=== PATIENT | female | born 1965 | race Caucasian/White ===

== ENCOUNTER 2021-12-21 13:29 | Inpatient (IN) | payer BC, OTHER ==
[2021-12-21] MEDS ORDERED: NA CHLORIDE 0.9% 1,000 ML ONE ×4 (14:43→17:54)
[2021-12-21 15:02] LABS: Absolute Lymphocytes (CBC) 0.9 K/uL (0.7-4.9); Hematocrit 39.4 % (36.0-45.0); Lymphocytes % 15.3 % (15.3-44.8); MPV 10.2 fL (7.6-11.3); Protime INR 1.19; RBC Red Blood Cell Count 4.51 M/uL (3.86-4.86)
[2021-12-21] MEDS ORDERED: ACETAMINOPHEN 325 MG TABLET ONE (15:05)
--- NOTE | 2021-12-21 15:49 | RAD REPORT ---
EXAM DESCRIPTION: RAD - Chest Single View - 12/21/2021 3:19 pm CLINICAL HISTORY: DYSPNEA Chest pain. COMPARISON: CHEST SINGLE VIEW dated 11/17/2013; CHEST PA AND LAT 2 VIEW dated 10/07/2009 FINDINGS: Portable technique limits examination quality. The lungs are grossly clear. The heart is normal in size. No displaced fractures.Cervical hardware pl ate is in place. IMPRESSION: No acute intrathoracic process suspected.
[2021-12-21 15:58] LABS: SARS-COV-2 RT PCR NEGATIVE (NEGATIVE)
[2021-12-21 17:37] LABS: ALT/SGPT 39 U/L (12-78); AST/SGOT 126 U/L (15-37); Albumin 2.6 g/dL (3.4-5.0); Alkaline Phosphatase 79 U/L (45-117); BUN Blood Urea Nitrogen 37 mg/dL (7-18); Bicarbonate 17 mmol/L (21-32); Bilirubin Total 0.3 mg/dL (0.2-1.0); Glucose Level 106 mg/dL (74-106); Lipase 30 U/L (73-393); Magnesium 1.9 mg/dL (1.8-2.4); NT PRO-BNP 1030 pg/mL (<125); Potassium 3.5 mmol/L (3.5-5.1); Protein, Total 6.9 g/dL (6.4-8.2); Sodium Level 134 mmol/L (136-145)
[2021-12-21 17:38] LABS: Bilirubin Direct < 0.1 mg/dL (0-0.2)
--- NOTE | 2021-12-21 17:50 | EDPHYS ---
Physician Documentation [facility] Name: Saranya Ceja Age: 56 yrs Sex: Female : 1965 Arrival Date: 12/21/2021 Time: 13:38 Bed 14 Private MD: ED Physician Radhika Campbell HPI: 12/21 17:31 This 56 yrs old Female presents to ER via EMS with complaints of Diarrhea, General kb Weakness. 17:31 The patient presents to the emergency department with nausea, diarrhea. Onset: The kb symptoms/episode began/occurred 3 week(s) ago. Possible causes: unknown. The symptoms are aggravated by nothing. The symptoms are alleviated by nothing. Associated signs and symptoms: Pertinent positives: diarrhea, fever, nausea. Severity of symptoms: At their worst the symptoms were moderate in the emergency department the symptoms are unchanged. The patient has not experienced similar symptoms in the past. The patient has not recently seen a physician. Pt reports headache, diarrhea, malaise, fever, chills for 3 weeks. . - Immunization history:: Adult Immunizations up to date, Client reports receiving the 2nd dose of the Covid vaccine. - Social history:: Smoking status: unknown. ROS: 15:35 Cardiovascular: Negative for chest pain, palpitations, and edema. kb 15:35 Constitutional: Positive for fever. 15:35 Abdomen/GI: Positive for diarrhea. 15:35 Neuro: Positive for weakness. 15:35 All other systems are negative. Exam: 15:35 ENT: Moist Mucous membranes Cardiovascular: Regular rate and rhythm with a normal S1 kb and S2. No gallops, murmurs, or rubs. No pulse deficits. Respiratory: Respirations even and unlabored. No increased work of breathing. Talking in full sentences Abdomen/GI: Soft, non-tender. No distention Skin: Warm, dry with normal turgor. Normal color. MS/ Extremity: Pulses equal, no cyanosis. Neurovascular intact. Full, normal range of motion. 15:35 Constitutional: The patient appears alert, awake, drowsy 15:35 Neuro: Orientation: is normal, Mentation: is normal. Vital Signs: 13:39 BP 138 / 88; Pulse 110; Pulse Ox 98% ; Weight 74.84 kg; Height 5 ft. 6 in. (167.64 cm); cb5 Pain 0/10; 14:00 BP 87 / 63; Pulse 123; Resp 20; Pulse Ox 98% ; Pain 0/10; cb5 14:15 BP 90 / 59; Pulse 119; Resp 22; Pulse Ox 98% ; Pain 0/10; cb5 14:35 BP 71 / 52; Pulse 121; Resp 22; Temp 99; Pain 0/10; cb5 14:40 BP 78 / 60; Pulse 121; Resp 20; Pulse Ox 98% ; Pain 0/10; cb5 15:00 BP 96 / 82; Pulse 117; Resp 22; Pulse Ox 98% ; Pain 0/10; cb5 15:01 BP 80 / 60; Pulse 117; Resp 21; Pulse Ox 99% ; iw 15:15 BP 88 / 45; Pulse 118; Resp 20; Pulse Ox 100% ; Pain 0/10; cb5 15:35 BP 100 / 52; Pulse 116; Resp 18; Pulse Ox 99% ; cb5 15:36 Weight 88.45 kg; kb 16:05 BP 116 / 70; Pulse 106; Resp 20; Temp 98.6; Pulse Ox 99% ; Pain 0/10; cb5 16:10 BP 117 / 57; Pulse 107; Resp 20; Pulse Ox 98% ; Pain 0/10; cb5 16:15 BP 116 / 58; Pulse 108; Resp 18; Pulse Ox 98% ; Pain 0/10; cb5 16:25 BP 113 / 52; Pulse 106; Resp 18; Pulse Ox 98% ; Pain 0/10; cb5 16:30 BP 110 / 56; Pulse 106; Resp 18; Pulse Ox 98% ; cb5 17:00 BP 103 / 52; Pulse 101; Resp 16; Pulse Ox 98% ; Pain 0/10; cb5 19:23 BP 92 / 47 RA Supine (auto/reg); Pulse 93 MON; Resp 16 S; Temp 97.8(O); Pulse Ox 100% tk1 on R/A; Pain 0/10; 19:30 BP 93 / 75 RA Supine (auto/reg); Pulse 92 MON; Resp 19 S; Pulse Ox 99% on R/A; Pain tk1 0/10; 20:00 BP 98 / 57 RA Supine (auto/reg); Pulse 91 MON; Resp 15 S; Pulse Ox 100% on R/A; Pain tk1 0/10; 21:00 BP 121 / 66 RA Supine (auto/reg); Pulse 98 MON; Resp 12 S; Pulse Ox 97% on R/A; Pain tk1 0/10; 21:30 BP 130 / 73 RA Supine (man/reg); Pulse 102 MON; Resp 15 S; Pulse Ox 98% on R/A; tk1 22:00 BP 96 / 53 RA Supine (auto/reg); Pulse 69 MON; Resp 12 S; Pulse Ox 100% on R/A; Pain tk1 0/10; 23:00 BP 105 / 60 RA Supine (auto/reg); Pulse 90 MON; Resp 13 S; Temp 98.1(O); Pulse Ox 100% tk1 on R/A; Pain 0/10; 23:30 BP 120 / 73 RA Supine (auto/reg); Pulse 98 MON; Resp 15 S; Temp 97.9(O); Pulse Ox 100% tk1 on R/A; Pain 0/10; 15:36 Body Mass Index 31.47 (88.45 kg, 167.64 cm) kb MDM: 13:45 Patient medically screened. 15:36 Data reviewed: vital signs, nurses notes. Data interpreted: Pulse oximetry: on room air kb is 99 %. Interpretation: normal. 17:41 Counseling: I had a detailed discussion with the patient and/or guardian regarding: the kb historical points, exam findings, and any diagnostic results supporting the discharge/admit diagnosis, lab results, radiology results, the need for further work-up and treatment in the hospital. 17:48 Physician consultation: Og Robles was contacted at 17:48, regarding admission, to the telemetry unit. patient's condition, and will see patient in ED. 12/21 14:15 Order name: Basic Metabolic Panel 12/21 14:15 Order name: CBC with Diff; Complete Time: 15:05 kb 12/21 14:15 Order name: LFT's; Complete Time: 17:41 kb 12/21 14:15 Order name: Magnesium; Complete Time: 17:41 kb 12/21 14:15 Order name: NT PRO-BNP; Complete Time: 17:41 kb 12/21 14:15 Order name: PT-INR; Complete Time: 15:02 kb 12/21 14:15 Order name: Troponin HS; Complete Time: 17:41 kb 12/21 14:15 Order name: COVID-19/FLU A+B (Document "Date of Onset" if Symptomatic); Complete Time: kb 16:05 12/21 14:15 Order name: Lipase; Complete Time: 17:41 kb 12/21 14:16 Order name: Basic Metabolic Panel; Complete Time: 17:41 EDMS 12/21 14:50 Order name: Blood Culture Adult (2) iw 12/21 14:50 Order name: Procalcitonin; Complete Time: 17:50 iw 12/21 14:50 Order name: Lactate; Complete Time: 15:38 iw 12/21 21:01 Order name: CDIFF sb3 12/21 14:15 Order name: XRAY Chest (1 view); Complete Time: 15:53 kb 12/21 14:15 Order name: EKG; Complete Time: 14:16 kb 12/21 14:15 Order name: Cardiac monitoring; Complete Time: 14:38 kb 12/21 14:15 Order name: EKG - Nurse/Tech; Complete Time: 14:49 kb 12/21 14:15 Order name: IV Saline Lock; Complete Time: 14:38 kb 12/21 14:15 Order name: Labs collected and sent; Complete Time: 14:38 kb 12/21 14:15 Order name: O2 Per Protocol; Complete Time: 14:38 kb 12/21 14:15 Order name: O2 Sat Monitoring; Complete Time: 14:39 kb 12/21 15:05 Order name: Labs - recollect needed: recollect light green tube; Complete Time: 17:22 bd 12/21 17:49 Order name: CT Head Brain wo Cont; Complete Time: 19:18 kb 12/21 18:29 Order name: Abdomen ; Complete Time: 19:18 EDMS Administered Medications: 14:40 Drug: NS 0.9% 1000 ml Route: IV; Rate: 1000 ml; Site: left antecubital; cb5 15:17 Drug: Tylenol 650 mg {Note: received verbal prior to entering into computer.} Route: PO;cb5 15:41 Drug: NS 0.9% (30 ml/kg) 30 ml/kg Route: IV; Rate: bolus; Site: left antecubital; cb5 17:53 Drug: NS 0.9% 1000 ml Route: IV; Rate: 100 ml/hr; Site: left antecubital; cb5 Disposition Summary: 12/21/21 17:49 Hospitalization Ordered Hospitalization Status: Inpatient Admission kb Provider: Og Robles Condition: Stable kb Problem: new kb Symptoms: are unchanged kb Bed/Room Type: Standard kb Location: Intensive Care Unit(12/21/21 21:13) cg Room Assignment: 2-(12/21/21 22:23) cg Diagnosis - Dehydration kb - Acute kidney failure, unspecified kb Forms: - Medication Reconciliation Form kb - SBAR form kb Signatures: Dispatcher [employer] EDMS Senia Bar, FREELANCE MAKEUP ARTIST-C FREELANCE MAKEUP ARTIST-Ckb Allison Ferreira Corey, PA PA Jzamin Meyer, RN RN cg Rosalie Antonio, RN RN cb5 Corrections: (The following items were deleted from the chart) 18:29 14:16 Abdomen Pelvis W Con+CT.RAD.BRZ ordered. EDTN EDMS 20:08 17:49 Telemetry/MedSurg (Inpatient) kb cg 20:08 17:49 kb cg 21:13 20:08 [facility] ER HOLD cg cg 21:13 20:08 ERHOLD- cg cg 22:23 21:13 cg cg
--- NOTE | 2021-12-21 17:50 | ER ---
Nurse's Notes [facility] Name: Saranya Ceja Age: 56 yrs Sex: Female : 1965 Arrival Date: 12/21/2021 Time: 13:38 Bed 14 Private MD: Diagnosis: Dehydration;Acute kidney failure, unspecified Presentation: 12/21 13:39 Chief complaint: EMS states: loose stool and weakness for three weeks, headache, uses cb5 oxygen at home PRN. Coronavirus screen: Client denies travel out of the [place] in the last 14 days. At this time, the client does not indicate any symptoms associated with coronavirus-19. Ebola Screen: Patient negative for fever greater than or equal to 101.5 degrees Fahrenheit, and additional compatible Ebola Virus Disease symptoms Patient denies exposure to infectious person. Initial Sepsis Screen: Does the patient meet any 2 criteria? No. Patient's initial sepsis screen is negative. Does the patient have a suspected source of infection? No. Patient's initial sepsis screen is negative. 13:39 Method Of Arrival: [facility] [place] 13:39 Acuity: SHANELLE 3 cb5 14:45 Acuity: SHANELLE 2 iw Triage Assessment: 13:42 General: Appears comfortable, Behavior is calm, cooperative, appropriate for age. Pain: cb5 Denies pain. EENT: No deficits noted. Neuro: Level of Consciousness is awake, alert, obeys commands, Oriented to person, place, time, situation. Cardiovascular: No deficits noted. Respiratory: No deficits noted. Reports pt uses home oxygen as needed. GI: Bowel sounds present X 4 quads. Reports lower abdominal pain, diarrhea. : No deficits noted. Derm: No deficits noted. Musculoskeletal: No deficits noted. - Immunization history:: Adult Immunizations up to date, Client reports receiving the 2nd dose of the Covid vaccine. - Social history:: Smoking status: unknown. Screenin:46 Abuse screen: Denies threats or abuse. Denies injuries from another. Nutritional cb5 screening: No deficits noted. Tuberculosis screening: No symptoms or risk factors identified. 14:10 Sepsis Screening: . Infection: Patient has suspected or documented infection. SIRS - cb5 Systemic Inflammatory Response Syndrome: 2 or more indicates positive screen: [temperature greater than or equal to 100.9F or less than or equal to 96.8F] [heart rate greater than 90 beats per minute] [respiratory rate is greater than 20 breaths per minute]. 15:08 Fall Risk None identified. cb5 Assessment: 13:46 General: see triage assessment. cb5 14:15 Neuro: Level of Consciousness is awake, alert, obeys commands, Oriented to person, cb5 place, time, situation. 14:30 Reassessment: Patient and/or family updated on plan of care and expected duration. Pain cb5 level reassessed. 14:30 Neuro: Level of Consciousness is awake, alert, obeys commands, Oriented to person, cb5 place, time, situation. 14:45 Neuro: Level of Consciousness is awake, alert, obeys commands, Oriented to person, cb5 place, time, situation. 15:00 Neuro: Level of Consciousness is awake, alert, obeys commands, Oriented to person, cb5 place, time, situation. 15:06 Reassessment: Spoke with lab, informed them we are unable to obtain a recollect at this cb5 time, patient has two P.I.V at this time for emergent access, and I.V fluids infusing tana. Lab will attempt to obtain recollect. 15:30 Reassessment: Patient and/or family updated on plan of care and expected duration. Pain cb5 level reassessed. 15:30 Neuro: Level of Consciousness is awake, alert, obeys commands, Oriented to person, cb5 place, time, situation. 16:00 Reassessment: pt asleep, in no acute distress, remains on the phototypesetting equipment monitor. . cb5 16:30 Reassessment: Patient and/or family updated on plan of care and expected duration. Pain cb5 level reassessed. 17:15 Reassessment: Patient and/or family updated on plan of care and expected duration. Pain cb5 level reassessed. 17:30 General: pt asleep, remains on phototypesetting equipment monitor, safety precautions are in effect, call cb5 light in reach, patient in front of nurses station.. 17:55 Reassessment: Patient and/or family updated on plan of care and expected duration. Pain cb5 level reassessed. 18:09 General: pts arrived is at bedside with her. Pt awake, alert, communicating cb5 with her . 18:15 General: Spoke with CT dept inquiring when they will transfer pt to dept for CT of cb5 head. They are waiting to hear back from the provider. . 18:34 General: pt is being transferred via hospital bed for CT of head.. cb5 18:35 General: pt reported she had a accident in the bed. set up technician and nurse changed linens cb5 provided lucina care, pt shi well. Pt had medium light brown loose stool. . 18:52 General: pt transferred to CT scan in hospital bed.. cb5 19:15 General: Appears comfortable, obese, unkempt, well developed, well nourished, Behavior tk1 is calm, cooperative, appropriate for age. Pain: Denies pain. Neuro: Level of Consciousness is obeys commands, lethargic, Oriented to person, place, time, situation, Appropriate for age [employer] Supervisor [employer] are equal bilaterally Moves all extremities. Speech is slurred, Facial symmetry appears normal, Pupils are PERRLA. Cardiovascular: Capillary refill is > 3 seconds in bilateral fingers Clubbing of nail beds is absent JVD is absent Rhythm is sinus rhythm. Respiratory: Airway is patent Trachea midline Respiratory effort is even, unlabored, Respiratory pattern is regular, symmetrical. GI: Abdomen is round non-distended, obese, Last BM was December 21, 2021. Bowel sounds present X 4 quads. hyperactive in right upper quadrant, left upper quadrant, right lower quadrant and left lower quadrant Abd is soft Abd is non tender X 4 quads. : No deficits noted. No signs and/or symptoms were reported regarding the genitourinary system. EENT: No deficits noted. No signs and/or symptoms were reported regarding the EENT system. Derm: Skin is mottled, Skin temperature is cool. 20:40 Reassessment: to nurses station. Patient incontinent of stool. Moderate amount tk1 of loose stool to bed pad and linens. Specimen collected and sent to lab. Patient assisted with turning to change linens. Patient states, feels weak after assisting. Remained at bedside to monitor patient. Weakness subsided within 5 minutes. 21:30 Reassessment: Patient and/or family updated on plan of care and expected duration. Pain tk1 level reassessed. Patient is alert, oriented x 3, equal unlabored respirations, skin warm/dry/pink. Patient denies pain at this time. 21:38 Reassessment: pt's spouse took pt's wallet home. tk1 Vital Signs: 13:39 BP 138 / 88; Pulse 110; Pulse Ox 98% ; Weight 74.84 kg; Height 5 ft. 6 in. (167.64 cm); cb5 Pain 0/10; 14:00 BP 87 / 63; Pulse 123; Resp 20; Pulse Ox 98% ; Pain 0/10; cb5 14:15 BP 90 / 59; Pulse 119; Resp 22; Pulse Ox 98% ; Pain 0/10; cb5 14:35 BP 71 / 52; Pulse 121; Resp 22; Temp 99; Pain 0/10; cb5 14:40 BP 78 / 60; Pulse 121; Resp 20; Pulse Ox 98% ; Pain 0/10; cb5 15:00 BP 96 / 82; Pulse 117; Resp 22; Pulse Ox 98% ; Pain 0/10; cb5 15:01 BP 80 / 60; Pulse 117; Resp 21; Pulse Ox 99% ; iw 15:15 BP 88 / 45; Pulse 118; Resp 20; Pulse Ox 100% ; Pain 0/10; cb5 15:35 BP 100 / 52; Pulse 116; Resp 18; Pulse Ox 99% ; cb5 15:36 Weight 88.45 kg; kb 16:05 BP 116 / 70; Pulse 106; Resp 20; Temp 98.6; Pulse Ox 99% ; Pain 0/10; cb5 16:10 BP 117 / 57; Pulse 107; Resp 20; Pulse Ox 98% ; Pain 0/10; cb5 16:15 BP 116 / 58; Pulse 108; Resp 18; Pulse Ox 98% ; Pain 0/10; cb5 16:25 BP 113 / 52; Pulse 106; Resp 18; Pulse Ox 98% ; Pain 0/10; cb5 16:30 BP 110 / 56; Pulse 106; Resp 18; Pulse Ox 98% ; cb5 17:00 BP 103 / 52; Pulse 101; Resp 16; Pulse Ox 98% ; Pain 0/10; cb5 19:23 BP 92 / 47 RA Supine (auto/reg); Pulse 93 MON; Resp 16 S; Temp 97.8(O); Pulse Ox 100% tk1 on R/A; Pain 0/10; 19:30 BP 93 / 75 RA Supine (auto/reg); Pulse 92 MON; Resp 19 S; Pulse Ox 99% on R/A; Pain tk1 0/10; 20:00 BP 98 / 57 RA Supine (auto/reg); Pulse 91 MON; Resp 15 S; Pulse Ox 100% on R/A; Pain tk1 0/10; 21:00 BP 121 / 66 RA Supine (auto/reg); Pulse 98 MON; Resp 12 S; Pulse Ox 97% on R/A; Pain tk1 0/10; 21:30 BP 130 / 73 RA Supine (man/reg); Pulse 102 MON; Resp 15 S; Pulse Ox 98% on R/A; tk1 22:00 BP 96 / 53 RA Supine (auto/reg); Pulse 69 MON; Resp 12 S; Pulse Ox 100% on R/A; Pain tk1 0/10; 23:00 BP 105 / 60 RA Supine (auto/reg); Pulse 90 MON; Resp 13 S; Temp 98.1(O); Pulse Ox 100% tk1 on R/A; Pain 0/10; 23:30 BP 120 / 73 RA Supine (auto/reg); Pulse 98 MON; Resp 15 S; Temp 97.9(O); Pulse Ox 100% tk1 on R/A; Pain 0/10; 15:36 Body Mass Index 31.47 (88.45 kg, 167.64 cm) kb ED Course: 13:38 Patient arrived in ED. cb5 13:39 Rosalie Antonio, KIMO is Primary Nurse. cb5 13:42 Triage completed. cb5 13:45 [facility]ia Bar F[facility]-C [facility] kb 13:45 Radhika Campbell MD is Attending Physician. kb 13:46 Arm band placed on. cb5 13:47 No provider procedures requiring assistance completed. cb5 14:00 Patient has correct armband on for positive identification. Bed in low position. Call cb5 light in reach. Side rails up X 1. 14:38 Basic Metabolic Panel Sent. cb5 14:38 Lipase Sent. cb5 14:38 Basic Metabolic Panel Sent. cb5 14:39 CBC with Diff Sent. cb5 14:39 LFT's Sent. cb5 14:39 Magnesium Sent. cb5 14:39 Troponin HS Sent. cb5 14:39 NT PRO-BNP Sent. cb5 14:39 PT-INR Sent. cb5 14:49 EKG done, by ED staff, reviewed by Senia HUYNH. em1 14:56 COVID-19/FLU A+B (Document "Date of Onset" if Symptomatic) Sent. cb5 15:20 XRAY Chest (1 view) In Process Unspecified. EDMS 17:49 MelvinOg narvaez is Hospitalizing Provider. kb 18:59 CT Head Brain wo Cont In Process Unspecified. EDMS 18:59 Abdomen In Process Unspecified. EDMS 19:01 Primary Nurse role handed off by Rosalie Antonio, KIMO mw2 19:12 Report given to Oscar Harris cb5 19:30 pvc monitor on. Pulse ox on. NIBP on. tk1 19:30 IV is patent, is intact, with fluids infusing freely. tk1 20:40 Cleaned of incontinence. Linen changed. tk1 21:02 Orquidea Bower, RN is Primary Nurse. ld1 Administered Medications: 14:40 Drug: NS 0.9% 1000 ml Route: IV; Rate: 1000 ml; Site: left antecubital; cb5 15:17 Drug: Tylenol 650 mg {Note: received verbal prior to entering into computer.} Route: PO;cb5 15:41 Drug: NS 0.9% (30 ml/kg) 30 ml/kg Route: IV; Rate: bolus; Site: left antecubital; cb5 17:53 Drug: NS 0.9% 1000 ml Route: IV; Rate: 100 ml/hr; Site: left antecubital; cb5 Intake: 17:07 IV: 2640ml (IV Fluid); Total: 2640ml. cb5 Outcome: 17:49 Decision to Hospitalize by Provider. kb 22:50 Admitted to ICU accompanied by nurse, accompanied by tech, via stretcher, room 2, with tk1 oxygen, on monitor, with chart, Report called to KIMO Lazcano 22:50 Condition: stable 22:50 Instructed on the need for admit. 23:48 Patient left the ED. bb Signatures: Dispatcher [employer] EDMS Senia Bar FNP-C FNP-Jessica Pascal RN RN bb Williams, Irene, RN RN iw Martinez, Eric em1 Amanda Painting mw2 Orquidea Bower, KIMO RN ld1 Kimberly Pastrana tk1 Rosalie Antonio, RN RN cb5 Corrections: (The following items were deleted from the chart) : 14:35 BP 71 / 72; Pulse 121bpm; Resp 22bpm; Temp 99F; Pain 0/10; cb5 cb5
--- NOTE | 2021-12-21 19:11 | RAD REPORT ---
EXAM DESCRIPTION: CT - Head Brain Wo Cont - 12/21/2021 6:59 pm CLINICAL HISTORY: MENTAL STATUS CHANGE Headache, drowsiness COMPARISON: HEAD BRAIN W O CONTRAST dated 11/17/2013 TECHNIQUE: All CT scans are performed using dose optimization technique as appropriate and may inclu de automated exposure control or mA/KV adjustment according to patient size. FINDINGS: No intracranial hemorrhage, hydrocephalus or extra-axial fluid collection.No areas of brai n edema or evidence of midline shift. Postsurgical changes affect the paranasal sinuses. Mild mucosal thickening of both maxillary antra. T he calvarium is intact. IMPRESSION: No acute intracranial abnormality.
--- NOTE | 2021-12-21 19:13 | RAD REPORT ---
EXAM DESCRIPTION: CT - Abdomen Pelvis Wo Contrast - 12/21/2021 6:59 pm CLINICAL HISTORY: Abdominal pain. ABD PAIN COMPARISON: No comparisons TECHNIQUE: CT imaging of the abdomen and pelvis was performed without contrast. Solid organ, bowel a nd vascular assessment is limited due to lack of IV and oral contrast. All CT scans are performed using dose optimization technique as appropriate and may include automated exposure control or mA/KV adjustment according to patient size. FINDINGS: Mild opacities are present in both lung bases, greater on the right. The liver, spleen, pancreas, adrenal glands and kidneys are within normal limits for a limited non-co ntrast examination. No bowel obstruction, free air, free fluid or abscess. Mild thickening and inflammation of the cecum and ascending colon suspected. The appendix is not identified as a discrete structure, however, no se condary findings of appendicitis are identified. Lumbar orthopedic hardware is present. Left common iliac artery stent is in place. IMPRESSION: Mild right-sided colitis is suspected. Mild bibasilar lung opacities, greater on the right, could indicate infection. A limited non-contrast examination was performed as detailed.
--- NOTE | 2021-12-21 21:55 | P.HP ---
Certification for Inpatient With expected LOS: >2 Midnights Patient will require the following post-hospital care: None Practitioner: I am a practitioner with admitting privileges, knowledge of patient current condition, hospital course, and medical plan of care. Services: Services provided to patient in accordance with Admission requirements found in Title 42 Section 412.3 of the Code of Federal Regulations Patient History Date of Service: 12/21/21 Primary Care Provider: Dr. Tao Reason for admission: Colitis, Hypotension, BEVERLEY History of Present Illness: Patient is a 56-year-old female with recurrent UTIs and history of C. difficile colitis who presented to the ED with a 1 week history of fever, diarrhea, and weakness. Patient reports she gets a UTI every other month and has been on antibiotic for treatment. Patient's brought her in today because she could barely walk and was having explosive diarrhea. In the ED patient's creatinine was found to be 4.29 (baseline < 1), WBC 6, troponin high- sensitivity 60, BNP 1030, pro-Jacob 2.7. Head CT negative and abdomen/pelvis CT showed right-sided colitis. Stool studies to check for C. difficile have been ordered along with blood cultures. Patient's blood pressure has been soft most likely secondary to dehydration. Will admit patient to the ICU for further evaluation and treatment and to monitor blood pressure closely and initiate vasopressor therapy if necessary. Allergies No Known Allergies Allergy (Unverified 03/03/13 09:31) Home medications list reviewed: Yes Home Medications: Metoprolol Tartrate [Lopressor*] 25 mg PO DAILY 11/18/13 Montelukast [Singulair*] 10 mg PO DAILY 11/18/13 lisinopriL [Prinivil*] 20 mg PO DAILY 11/18/13 - Past Medical/Surgical History Diabetic: No -: HTN -: Asthma -: seasonal allergies -: Arrythmia -: Neuropathy -: Tonsillectomy -: Appendectomy -: Cyst removal on Right elbow -: tubal ligation -: Back/neck fusion x 3 Psychosocial/ Personal History: Patient lives at home with her . - Family History Mother -: Heart disease - Social History Smoking Status: Never smoker Alcohol use: Yes CD- Drugs: No Caffeine use: Yes Place of Residence: Home Review of Systems General: Fever, Sweats, Weakness, Malaise, As per HPI Eyes: Redness Gastrointestinal: Nausea, Abdominal Pain, Diarrhea Physical Examination - Physical Exam General: Alert, In no apparent distress HEENT: Atraumatic, PERRLA, Other (dry mucous membranes ), EOMI, Sclerae nonicteric Neck: Supple, 2+ carotid pulse no bruit, No LAD, Without JVD or thyroid abnormality Respiratory: Crackles/rales Cardiovascular: Regular rate/rhythm, Normal S1 S2 Gastrointestinal: Normal bowel sounds, No rebound, No guarding, Tenderness Musculoskeletal: No tenderness Integumentary: No rashes Neurological: Normal speech, Normal strength at 5/5 x4 extr, Normal tone, Normal affect - Studies Laboratory Data (last 24 hrs) 12/21/21 16:54: Sodium 134 L, Potassium 3.5, BUN 37 H, Creatinine 4.29 H, Glucose 106, Magnesium 1.9, Total Bilirubin 0.3, AST 126 H, ALT 39, Alkaline Phosphatase 79, Lipase 30 L 12/21/21 14:35: PT 13.7 H, INR 1.19 12/21/21 14:35: WBC 6.00, Hgb 12.9, Hct 39.4, Plt Count 212 Assessment and Plan - Problems (Diagnosis) (1) Colitis Current Visit: Yes Status: Acute (2) Hypotension due to hypovolemia Current Visit: Yes Status: Acute (3) BEVERLEY (acute kidney injury) Current Visit: Yes Status: Acute (4) Atrial arrhythmia Current Visit: No Status: Chronic - Plan -colitis likely from c diff. stool studies pending. started vanc and flagyl. -hypotension likely secondary to hypovolemia. patient received sepsis fluids in the ED. will continue IVF at 100 cc/hr -Cr 4.29 on admission. BEVERLEY likely secondary to dehydration. Will trend. nephrology consulting. appreciate help -patient is prescribed lasix for presumed CHF (EF unknown) however patient states she only takes it every few days -patient admitted to ICU to monitor blood pressure. If persistently low, will insert central line and initiate vaspressor therapy -troponin was slightly elevated at 60.4. will trend q6h x 2 -patient is no longer febrile, WBC is not elevated, and lactic acid is 1.3. blood cultures drawn DVT PPx: eliquis (home med) Code: Full Discharge Plan: Home Plan to discharge in: Greater than 2 days - Advance Directives Does patient have a Living Will: No Does patient have a Durable POA for Healthcare: No - Code Status/Comfort Care Code Status Assessed: Yes (Full) Critical Care: No Time Spent Managing Pts Care (In Minutes): 70
[2021-12-22] MEDS: ATORVASTATIN 20 MG TAB PO SCH ×2 (00:16→20:12)
[2021-12-22] MEDS: APIXABAN 2.5 MG TABLET PO SCH ×3 (00:16→20:13)
[2021-12-22] MEDS: VANCOMYCIN ORAL SOLN 250 MG/5 ML OSYR PO SCH ×4 (00:16→18:33)
[2021-12-22] MEDS: LOSARTAN POTASSIUM 50 MG TABLET PO SCH ×2 (00:16→08:57)
[2021-12-22] MEDS: NA CHLORIDE 0.9% 1,000 ML IV SCH ×3 (00:16→20:16)
[2021-12-22] MEDS: GABAPENTIN 300 MG CAP PO SCH ×4 (00:16→20:12)
[2021-12-22 00:31] VITALS: BMI 33.8
[2021-12-22] MEDS: METRONIDAZOLE 500mg IVPB 500 MG/100 ML BAG IV SCH ×2 (00:49→08:57)
[2021-12-22] MEDS: MORPHINE 2 MG/ML SYR IV PRN ×3 (01:49→21:25)
[2021-12-22] MEDS: LEVOTHYROXINE SOD 0.075 MG TAB PO SCH (05:43)
[2021-12-22] MEDS: PANTOPRAZOLE 40MG TABLET PO SCH (05:43)
[2021-12-22] MEDS ORDERED: METOPROLOL XL 50 MG TAB PO SCH (06:00)
[2021-12-22 08:29] LABS: Absolute Lymphocytes (CBC) 0.9 K/uL (0.7-4.9); Hematocrit 36.6 % (36.0-45.0); Lymphocytes % 23.1 % (15.3-44.8)
[2021-12-22] MEDS: ASPIRIN 325 MG TAB PO SCH (08:57)
[2021-12-22 08:58] LABS: Albumin 2.7 g/dL (3.4-5.0); Bilirubin Total 0.3 mg/dL (0.2-1.0); Potassium 3.4 mmol/L (3.5-5.1); Protein, Total 6.9 g/dL (6.4-8.2); Thyroid Stimulating Hormone 0.856 uIU/mL (0.360-3.740)
[2021-12-22 09:10] LABS: Blood Morphology Comment NOT SEEN (NOT SEEN); Platelet Estimate ADEQ
[2021-12-22] MEDS ORDERED: POTASSIUM CL SA 10 MEQ TAB PO ONE (10:30)
[2021-12-22] MEDS ORDERED: MAGNESIUM SULFATE 1 gm IVPB 1 GM/100 ML BAG IV ONE (10:48)
[2021-12-22] MEDS: Levofloxacin 250mg IV 250 MG/50 ML BAG IV SCH (11:17)
[2021-12-22 11:32] LABS: Uric Acid 8.6 mg/dL (2.6-6.0)
--- NOTE | 2021-12-22 11:34 | P.CNS ---
Date of Consult: 12/22/21 Reason for Consult: BEVERLEY/ CKD Requesting Physician: anthony richards Primary Care Provider: Dr. Tao Chief Complaint: Colitis, Hypotension, BEVERLEY History of Present Illness: Patient is a 56-year-old female with recurrent UTIs and history of C. difficile colitis who presented to the ED with a 1 week history of fever, diarrhea, and weakness. Patient reports she gets a UTI every other month and has been on antibiotic for treatment. Patient's brought her in today because she could barely walk and was having explosive diarrhea. In the ED patient's creatinine was found to be 4.29 (baseline < 1), WBC 6, troponin high- sensitivity 60, BNP 1030, pro-Jacob 2.7. Head CT negative and abdomen/pelvis CT showed right-sided colitis. Stool studies to check for C. difficile have been ordered along with blood cultures. Patient's blood pressure has been soft most likely secondary to dehydration. Will admit patient to the ICU for further evaluation and treatment and to monitor blood pressure closely and initiate vasopressor therapy if necessary. 17:31 This 56 yrs old Female presents to ER via EMS with complaints of Diarrhea, General kb Weakness. 17:31 The patient presents to the emergency department with nausea, diarrhea. Onset: The kb symptoms/episode began/occurred 3 week(s) ago. Possible causes: unknown. The symptoms are aggravated by nothing. The symptoms are alleviated by nothing. Associated signs and symptoms: Pertinent positives: diarrhea, fever, nausea. Severity of symptoms: At their worst the symptoms were moderate in the emergency department the symptoms are unchanged. The patient has not experienced similar symptoms in the past. The patient has not recently seen a physician. Pt reports headache, diarrhea, malaise, fever, chills for 3 weeks. Allergies No Known Allergies Allergy (Unverified 03/03/13 09:31) Home medications list reviewed: Yes Home Medications: Metoprolol Tartrate [Lopressor*] 25 mg PO DAILY 11/18/13 Montelukast [Singulair*] 10 mg PO DAILY 11/18/13 lisinopriL [Prinivil*] 20 mg PO DAILY 11/18/13 - Past Medical/Surgical History Diabetic: No -: HTN -: Asthma -: seasonal allergies -: Arrythmia -: Neuropathy -: Tonsillectomy -: Appendectomy -: Cyst removal on Right elbow -: tubal ligation -: Back/neck fusion x 3 Psychosocial/ Personal History: Patient lives at home with her . - Family History Mother Medical History: Heart disease - Social History Smoking Status: Unknown if ever smoked Alcohol use: Yes CD- Drugs: No Caffeine use: Yes Place of Residence: Home Review of Systems 10-point ROS is otherwise unremarkable General: Weakness, Malaise Physical Examination Temp Pulse Resp BP Pulse Ox 97.4 F 103 H 13 110/65 98 12/22/21 08:00 12/22/21 09:00 12/22/21 09:00 12/22/21 09:00 12/22/21 09:00 General: In no apparent distress, Cooperative HEENT: Atraumatic Neck: Supple Respiratory: Clear to auscultation bilaterally Cardiovascular: No edema, Regular rate/rhythm Gastrointestinal: Soft and benign, Non-distended Musculoskeletal: No clubbing, No contractures Integumentary: No rashes, No cyanosis Neurological: Normal speech Laboratory Data (last 24 hrs) 12/21/21 16:54: Sodium 134 L, Potassium 3.5, BUN 37 H, Creatinine 4.29 H, Glucose 106, Magnesium 1.9, Total Bilirubin 0.3, AST 126 H, ALT 39, Alkaline Phosphatase 79, Lipase 30 L 12/21/21 14:35: PT 13.7 H, INR 1.19 12/21/21 14:35: WBC 6.00, Hgb 12.9, Hct 39.4, Plt Count 212 Imagings Data: EXAM DESCRIPTION: CT - Abdomen Pelvis Wo Contrast - 12/21/2021 6:59 pm CLINICAL HISTORY: Abdominal pain. ABD PAIN COMPARISON: No comparisons TECHNIQUE: CT imaging of the abdomen and pelvis was performed without contrast. Solid organ, bowel and vascular assessment is limited due to lack of IV and oral contrast. All CT scans are performed using dose optimization technique as appropriate and may include automated exposure control or mA/KV adjustment according to patient size. FINDINGS: Mild opacities are present in both lung bases, greater on the right. The liver, spleen, pancreas, adrenal glands and kidneys are within normal limits for a limited non-contrast examination. No bowel obstruction, free air, free fluid or abscess. Mild thickening and inflammation of the cecum and ascending colon suspected. The appendix is not identified as a discrete structure, however, no secondary findings of appendicitis are identified. Lumbar orthopedic hardware is present. Left common iliac artery stent is in place. IMPRESSION: Mild right-sided colitis is suspected. Mild bibasilar lung opacities, greater on the right, could indicate infection. EXAM DESCRIPTION: RAD - Chest Single View - 12/21/2021 3:19 pm CLINICAL HISTORY: DYSPNEA Chest pain. COMPARISON: CHEST SINGLE VIEW dated 11/17/2013; CHEST PA AND LAT 2 VIEW dated 10/07/2009 FINDINGS: Portable technique limits examination quality. The lungs are grossly clear. The heart is normal in size. No displaced fractures.Cervical hardware plate is in place. IMPRESSION: No acute intrathoracic process suspected. Conclusions/Impression: BEVERLEY in the setting of hypotension/ hypovolemia possibly complicated by ATN CKD III -No NSAIDs -Continue IVF with NS Hyponatremia -Continue IVF with NS Hypokalemia -Replete potassium Acidosis -Improving with current tx HTN with CKD complicated by hypotension -Hold antihypertensives at this time -IVF bolus as needed Moderate malnutrition -Advance diet as tolerated Pancytopenia -Monitor CBC CKD MBD -Start Calcitriol Sepsis Right sided colitis -Continue Vancomycin -Continue Levaquin and flagyl -Follow up cultures -IVF bolus as needed Thank you kindly for the consultation.
[2021-12-22] MEDS: CALCITROL 0.25 MCG CAP PO SCH (12:26)
[2021-12-22] MEDS: ACETAMINOPHEN 500 MG TAB PO PRN (12:27)
--- NOTE | 2021-12-22 12:58 | P.PN ---
Subjective Date of Service: 12/22/21 Primary Care Provider: Dr. Tao Chief Complaint: Colitis, Hypotension, BEVERLEY No issues overnight. Patient complaining of intermittent nausea. No diarrhea last night. Blood pressure have improved. Physical Examination - Vital Signs Temperature: 98.5 F Blood Pressure: 113/69 Pulse: 108 Respirations: 17 Pulse Ox (%): 99 - Studies Laboratory Data (last 24 hrs) 12/21/21 16:54: Sodium 134 L, Potassium 3.5, BUN 37 H, Creatinine 4.29 H, Glucose 106, Magnesium 1.9, Total Bilirubin 0.3, AST 126 H, ALT 39, Alkaline Phosphatase 79, Lipase 30 L 12/21/21 14:35: PT 13.7 H, INR 1.19 12/21/21 14:35: WBC 6.00, Hgb 12.9, Hct 39.4, Plt Count 212 Microbiology Data (last 24 hrs): 12/21/21 16:54 Blood - Blood Anaerobic Blood Culture - Final Assessment And Plan - Plan Physical Exam General: Alert, In no apparent distress HEENT: EOMI, Sclerae nonicteric, dry tongue. Neck: Supple, Without JVD or thyroid abnormality Respiratory: Clear to auscultation bilaterally. Cardiovascular: Regular rate/rhythm, Normal S1 S2 Gastrointestinal: Normal bowel sounds, No rebound, No guarding, Tenderness-lower abdomen Musculoskeletal: No tenderness Integumentary: No rashes Neurological: Normal strength at 5/5 x4 extr, Normal affect. Assessment and plan Hypovolemic shock. Acute renal failure-likely prerenal Colitis History of C. difficile colitis. Non-anion gap metabolic acidosis. Elevated troponin Plan: Continue Levaquin until blood culture results. Blood pressure has improved and patient is currently normotensive. Oral vancomycin given history of C. difficile and presence of colitis on the CT scan. Continue IV hydration Advance diet as tolerated. Monitor renal function to follow BEVERLEY and metabolic acidosis. Nephrology input appreciated. Troponin trended down. ACS is unlikely. Downgrade from the ICU to the medical floor.
--- NOTE | 2021-12-22 13:31 | CON ---
Date of Consultation: 12/22/2021 Consulting Physician: Reason For Consultation: Elevated BUN and creatinine, acidosis, fluid management. History Of Present Illness: This is a pleasant 56-year-old female with significant past medical history of recurrent UTI started back in September 2021, bronchial asthma, hypertension, neuropathy, the patient was in her regular state of health according to her for the last couple of months she is battling recurrent UTI, treated back in September and then she has another episode in early November. Then, at this time in the last 2 weeks, the patient started having weakness, decreased appetite, nausea without any vomiting, then started developing some diarrhea. Her symptoms got worse and she had severe fatigue. For that reason, her brought her to the hospital. Upon arrival to the hospital, the patient was hypotensive and the patient's also workup showed elevation in BUN and creatinine. Creatinine was up to 4.29 with GFR of 11. For that reason, we have been consulted. The patient denied taking any nonsteroidal. No exposure for any contrast. No recent change in her medications. The patient also complaining from cough with yellowish sputum. Past Medical History: Includes; 1. Hypertension. 2. Hyperlipidemia. 3. Bronchial asthma. 4. Cardiac arrhythmia. 5. Neuropathy. Past Surgical History: Includes appendectomy, tonsillectomy, renal cyst tubal ligation. Allergies: NO KNOWN DRUGS ALLERGY. Home Medications: Include Singulair, metoprolol, lisinopril. Family History: Positive for chronic kidney disease secondary to congestive heart failure, CAD. Social History: Denies smoking. Occasional alcohol. Denied drugs abuse. Review of Systems: Head and Neck: No red eye. No ear pain. GI: Has nausea. No vomiting. Content Creation Manager: No vaginal discharge. : No polyuria. Has dysuria. Respiratory: Has cough. Has yellowish sputum. Cardiovascular: No chest pain. Has low blood pressure. Endocrine: No polydipsia. Skin: No rash. Neuro: Has neuropathy. Musculoskeletal: Generalized fatigue. Physical Examination: General: When I saw the patient; the patient lying in bed, not in any distress. Vital Signs: Blood pressure 110/65, pulse of 103, afebrile. Reviewing blood pressure yesterday, her blood pressure was down to 87 systolic. There is no documentation for urine output, but the patient peed over the night. Chest: Clear to auscultation. Heart: S1, S2. Regular. Tachycardic. Abdomen: Soft, nontender. No guarding or rebound. Extremities: No edema. Neurological: Alert, oriented x3. No focal. No tremor. Laboratory Data: Upon admission yesterday; sodium 134, potassium 3.5, bicarb 17, chloride 108, BUN 37, creatinine 4.2, calcium 7.8, magnesium 1.9. Troponin 60. Albumin 2.6. Corrected calcium is 9. TSH 0.8. WBC 6, H and H 12.9/39.4. Latest lab data today; sodium 138, potassium 3.4, bicarb 20, BUN 44, creatinine 4.07, calcium 8.3, albumin 2.7. Urinalysis was not done yet. CT abdomen and pelvis, no hydronephrosis, positive for colitis. Current Medications: The patient received 5 L of normal saline. Currently on aspirin, metronidazole 500 every 8 hours, vancomycin oral, Eliquis, losartan 50, atorvastatin, metoprolol 50 mg, normal saline, levothyroxine, KCl. Assessment And Plan: 1. Acute kidney injury, obstructive uropathy has been ruled out, mostly secondary to prerenal, secondary to GI loss, superimposed with CARMELO inhibitor use, complicated with acidosis. No hyperkalemia. No over volume. No uremic symptoms. I do not see the need for initiate any renal replacement therapy for the time being as the patient nonoliguric, no symptoms to treat uremia or hyperkalemia. For the time being, I am going to continue the patient for aggressive hydration. We will get PTH and we will monitor the patient. Obstructive uropathy has been ruled out. Rhabdomyolysis has been ruled out and we will monitor the patient. 2. Acidosis, non-anion gap metabolic acidosis secondary to GI loss. Currently, bicarb level is acceptable. We will continue current normal saline for the patient and we will follow up. 3. Hypokalemia. We will supplement. I will supplement also with magnesium. 4. Hypomagnesemia. We will supplement. 5. Hyponatremia secondary to depletion, recovered, resolved. 6. Hypertension, currently blood pressure on the lower side with the presence of acute kidney injury. Discontinue CARMELO inhibitor or ARB. Decrease metoprolol to 25 mg and we will continue hydration and we will monitor the patient. 7. Colitis as by primary. The patient was started on Flagyl and vancomycin. We will follow up. 8. Consolidation on the CT, possible pneumonia with symptoms and given the presentation of shock, I am going to start the patient on Levaquin and the patient already on Flagyl. We will follow up. Time spent examining the patient, [id number], discussing with the patient, reviewing data including radiology and laboratory, placing order, discussing the case with other steam hand including nursing and charge nurse, discussing the case with other subspecialists including hospitalist 65 minutes. LUIS Voice ID: [id number] Report ID: [id number] [place]
[2021-12-23] MEDS: VANCOMYCIN ORAL SOLN 250 MG/5 ML OSYR PO SCH ×3 (00:05→11:07)
[2021-12-23 05:30] LABS: Absolute Lymphocytes (CBC) 0.7 K/uL (0.7-4.9); Hematocrit 32.8 % (36.0-45.0); Lymphocytes % 15.6 % (15.3-44.8); MPV 9.9 fL (7.6-11.3); RBC Red Blood Cell Count 3.77 M/uL (3.86-4.86)
[2021-12-23] MEDS: NA CHLORIDE 0.9% 1,000 ML IV SCH ×3 (05:33→23:59)
[2021-12-23] MEDS: LEVOTHYROXINE SOD 0.075 MG TAB PO SCH (05:41)
[2021-12-23] MEDS: METOPROLOL XL 25 MG TAB PO SCH (05:41)
[2021-12-23 05:49] LABS: Albumin 2.4 g/dL (3.4-5.0); Bilirubin Total 0.2 mg/dL (0.2-1.0); Magnesium 2.2 mg/dL (1.8-2.4); Phosphorus 3.8 mg/dL (2.5-4.9); Potassium 3.9 mmol/L (3.5-5.1); Protein, Total 6.2 g/dL (6.4-8.2); Uric Acid 8.2 mg/dL (2.6-6.0)
[2021-12-23] MEDS: PANTOPRAZOLE 40MG TABLET PO SCH (05:50)
[2021-12-23] MEDS: ASPIRIN 325 MG TAB PO SCH (07:59)
[2021-12-23] MEDS: CALCITROL 0.25 MCG CAP PO SCH (07:59)
[2021-12-23] MEDS: SODIUM BICARB 325 MG TAB PO SCH ×3 (08:00→16:25)
[2021-12-23] MEDS: GABAPENTIN 300 MG CAP PO SCH ×3 (08:00→20:23)
[2021-12-23] MEDS: APIXABAN 2.5 MG TABLET PO SCH ×2 (08:03→20:23)
[2021-12-23] MEDS: Levofloxacin 250mg IV 250 MG/50 ML BAG IV SCH (10:24)
[2021-12-23 11:12] LABS: C.diff Antigen/Toxin Ag neg : Tox neg (NEG : NEG)
[2021-12-23 12:42] LABS: Urine Appearance CLOUDY (Clear); Urine Bilirubin NEGATIVE (Negative); Urine Blood 3+ (Negative); Urine Color YELLOW (Yellow); Urine Glucose NEGATIVE (Negative); Urine Protein 1+ (Negative); Urine Urobilinogen 0.2 mg/dL (0.2-1.0); Urine pH 5.5 (5.0-7.0)
[2021-12-23 12:50] LABS: UR PROTEIN 74.1 mg/dL (<11.9); Urine Protein/Creatinine Ratio 1.51 ratio (<0.15)
[2021-12-23 13:10] LABS: Urine Bacteria >50 /HPF (<20); Urine RBC 20-50 /HPF (NONE SEEN)
--- NOTE | 2021-12-23 14:46 | P.PN ---
Subjective Date of Service: 12/23/21 Primary Care Provider: Dr. Tao Chief Complaint: Colitis, Hypotension, BEVERLEY Patient reports persistent diarrhea She states that the nausea is better. Blood pressure has been stable. Physical Examination - Vital Signs Temperature: 96.5 F Blood Pressure: 137/68 Pulse: 92 Respirations: 12 Pulse Ox (%): 100 - Studies Microbiology Data (last 24 hrs): 12/21/21 16:54 Blood - Blood Anaerobic Blood Culture - Final Assessment And Plan - Plan Physical Exam General: Alert, In no apparent distress HEENT: EOMI, Sclerae nonicteric, moist oral mucosa Neck: Supple, Without JVD or thyroid abnormality Respiratory: Clear to auscultation bilaterally. Cardiovascular: Regular rate/rhythm, Normal S1 S2 Gastrointestinal: Normal bowel sounds, No rebound, No guarding, Tenderness-lower abdomen Musculoskeletal: No tenderness Integumentary: No rashes Neurological: Normal strength at 5/5 x4 extr, Normal affect. Assessment and plan Hypovolemic shock. Acute renal failure-likely prerenal Colitis History of C. difficile colitis. Non-anion gap metabolic acidosis. Elevated troponin Plan: Stool for C. difficile is negative. Discontinue oral vancomycin and add IV Flagyl to Levaquin. Check stool for WBC/fecal leukocyte stain. Blood pressure has improved and patient is currently normotensive. Continue IV hydration. No significant change in serum creatinine compared to y . Increase IV fluid rate to combat fluid loss from diarrhea Advance diet as tolerated. Monitor renal function to follow BEVERLEY and metabolic acidosis. Nephrology is following. Troponin trended down. ACS is unlikely.
[2021-12-23] MEDS: METRONIDAZOLE 500mg IVPB 500 MG/100 ML BAG IV SCH ×2 (16:25→23:59)
[2021-12-23] MEDS: ACETAMINOPHEN 500 MG TAB PO PRN (18:30)
[2021-12-23] MEDS: ATORVASTATIN 20 MG TAB PO SCH (20:23)
[2021-12-23] MEDS: MORPHINE 2 MG/ML SYR IV PRN (20:32)
--- NOTE | 2021-12-23 21:06 | P.PN ---
Date of Service: 12/23/21 Vital Signs Temp Pulse Resp BP Pulse Ox 97.4 F 93 H 17 149/73 H 97 12/23/21 18:07 12/23/21 18:07 12/23/21 18:07 12/23/21 18:07 12/23/21 18:07 Medications Acetaminophen (Acetaminophen 500 Mg Tab) 500 mg PO Q4HP PRN PRN Reason: TEMP > 100' F Last Admin: 12/23/21 18:30 Dose: 500 mg Documented by: Apixaban (Apixaban 2.5 Mg Tablet) 2.5 mg PO BID [facility] Last Admin: 12/23/21 20:23 Dose: 2.5 mg Documented by: Aspirin (Aspirin 325 Mg Tab) 325 mg PO DAILY [facility] Last Admin: 12/23/21 07:59 Dose: 325 mg Documented by: Atorvastatin Calcium (Atorvastatin 20 Mg Tab) 20 mg PO BEDTIME [facility] Last Admin: 12/23/21 20:23 Dose: 20 mg Documented by: Calcitriol (Calcitrol 0.25 Mcg Cap) 0.5 mcg PO DAILY [facility] Last Admin: 12/23/21 07:59 Dose: 0.5 mcg Documented by: Gabapentin (Gabapentin 300 Mg Cap) 600 mg PO TID [facility] Last Admin: 12/23/21 20:23 Dose: 600 mg Documented by: Levofloxacin/Dextrose (Levaquin 250mg/50 Ml Ivpb) 250 mg in 50 mls @ 50 mls/hr IV Q24H [facility]; Protocol Last Admin: 12/23/21 10:24 Dose: 50 mls Documented by: Metronidazole/Sodium Chloride (Flagyl 500mg/100 Ml Iv Premix) 500 mg in 100 mls @ 200 mls/hr IV Q8HR [facility]; Protocol Last Admin: 12/23/21 16:25 Dose: 100 mls Documented by: Sodium Chloride (Ns 1000 Ml Ivbag) 1,000 mls @ 125 mls/hr IV .Q8H [facility] Last Admin: 12/23/21 15:30 Dose: 1,000 mls Documented by: Levothyroxine Sodium (Levothyroxine Sod 0.075 Mg Tab) 0.075 mg PO DAILYAC [facility] Last Admin: 12/23/21 05:41 Dose: 0.075 mg Documented by: Metoprolol Succinate (Metoprolol Xl 25 Mg Tab) 25 mg PO [id number] [facility] Last Admin: 12/23/21 05:41 Dose: 25 mg Documented by: Morphine Sulfate (Morphine 2 Mg/Ml Syr) 2 mg IV Q4H PRN PRN Reason: Pain scale 5-7 (Moderate) Last Admin: 12/23/21 20:32 Dose: 2 mg Documented by: Ondansetron HCl (Ondansetron 4 Mg/2 Ml Vial) 4 mg IV Q6HP PRN PRN Reason: NAUSEA / VOMITING Pantoprazole Sodium (Pantoprazole 40mg Tablet) 40 mg PO DAILYAC [facility]; Protocol Last Admin: 12/23/21 05:50 Dose: 40 mg Documented by: Sodium Bicarbonate (Sodium Bicarb 325 Mg Tab) 650 mg PO TIDWM [facility] Last Admin: 12/23/21 16:25 Dose: 650 mg Documented by: Sodium Chloride (Flush Normal Saline 10 Ml) 10 ml IV BID [facility] Last Admin: 12/23/21 08:01 Dose: 10 ml Documented by: Microbiology Results 12/21/21 16:54 Blood - Blood Aerobic Blood Culture - Preliminary No growth in 24 hours. 12/21/21 16:54 Blood - Blood Anaerobic Blood Culture - Final 12/21/21 14:50 Blood - Blood Aerobic Blood Culture - Preliminary No growth in 24 hours. 12/21/21 14:50 Blood - Blood Anaerobic Blood Culture - Preliminary No growth in 24 hours. Assessment/ Plan: Nephrology No dyspnea No chest pain Malaise and weakness No acute events overnight Vitals, medications, blood work and imaging reviewed in the chart. General: In no apparent distress, Cooperative HEENT: Atraumatic Neck: Supple Respiratory: Clear to auscultation bilaterally Cardiovascular: No edema, Regular rate/rhythm Gastrointestinal: Soft and benign, Non-distended Musculoskeletal: No clubbing, No contractures Integumentary: No rashes, No cyanosis Neurological: Normal speech Greater than 30min patient care Laboratory Data (last 24 hrs) 12/21/21 16:54: Sodium 134 L, Potassium 3.5, BUN 37 H, Creatinine 4.29 H, Glucose 106, Magnesium 1.9, Total Bilirubin 0.3, AST 126 H, ALT 39, Alkaline Phosphatase 79, Lipase 30 L 12/21/21 14:35: PT 13.7 H, INR 1.19 12/21/21 14:35: WBC 6.00, Hgb 12.9, Hct 39.4, Plt Count 212 Imagings Data: EXAM DESCRIPTION: CT - Abdomen Pelvis Wo Contrast - 12/21/2021 6:59 pm CLINICAL HISTORY: Abdominal pain. ABD PAIN COMPARISON: No comparisons TECHNIQUE: CT imaging of the abdomen and pelvis was performed without contrast. Solid organ, bowel and vascular assessment is limited due to lack of IV and oral contrast. All CT scans are performed using dose optimization technique as appropriate and may include automated exposure control or mA/KV adjustment according to patient size. FINDINGS: Mild opacities are present in both lung bases, greater on the right. The liver, spleen, pancreas, adrenal glands and kidneys are within normal limits for a limited non-contrast examination. No bowel obstruction, free air, free fluid or abscess. Mild thickening and inflammation of the cecum and ascending colon suspected. The appendix is not identified as a discrete structure, however, no secondary findings of appendicitis are identified. Lumbar orthopedic hardware is present. Left common iliac artery stent is in place. IMPRESSION: Mild right-sided colitis is suspected. Mild bibasilar lung opacities, greater on the right, could indicate infection. EXAM DESCRIPTION: RAD - Chest Single View - 12/21/2021 3:19 pm CLINICAL HISTORY: DYSPNEA Chest pain. COMPARISON: CHEST SINGLE VIEW dated 11/17/2013; CHEST PA AND LAT 2 VIEW dated 10/07/2009 FINDINGS: Portable technique limits examination quality. The lungs are grossly clear. The heart is normal in size. No displaced fractures.Cervical hardware plate is in place. IMPRESSION: No acute intrathoracic process suspected. Conclusions/Impression: BEVERLEY in the setting of hypotension/ hypovolemia consistent with ATN (FeNa 2.74%) CKD III -No NSAIDs -Continue IVF with NS Hyponatremia -Continue IVF with NS Hypokalemia -Replete potassium prn Acidosis -Start oral bicarb HTN with CKD complicated by hypotension -Hold antihypertensives at this time -IVF bolus as needed Moderate malnutrition -Advance diet as tolerated Pancytopenia -Monitor CBC CKD MBD -Continue Calcitriol Sepsis Right sided colitis -Continue Levaquin and flagyl -Follow up cultures -IVF bolus as needed
[2021-12-24] MEDS: LEVOTHYROXINE SOD 0.075 MG TAB PO SCH (05:46)
[2021-12-24] MEDS: METOPROLOL XL 25 MG TAB PO SCH (05:46)
[2021-12-24] MEDS: PANTOPRAZOLE 40MG TABLET PO SCH (05:46)
[2021-12-24 06:39] LABS: Absolute Lymphocytes (CBC) 0.7 K/uL (0.7-4.9); Lymphocytes % 16.2 % (15.3-44.8); MPV 10.1 fL (7.6-11.3); RBC Red Blood Cell Count 3.64 M/uL (3.86-4.86)
[2021-12-24 06:57] LABS: Albumin 2.5 g/dL (3.4-5.0); Bilirubin Total 0.2 mg/dL (0.2-1.0); Magnesium 2.2 mg/dL (1.8-2.4); Potassium 3.9 mmol/L (3.5-5.1); Protein, Total 6.3 g/dL (6.4-8.2)
[2021-12-24] MEDS: ACETAMINOPHEN 500 MG TAB PO PRN (08:33)
[2021-12-24] MEDS: SODIUM BICARB 325 MG TAB PO SCH ×3 (08:34→16:42)
[2021-12-24] MEDS: NA CHLORIDE 0.9% 1,000 ML IV SCH ×2 (08:34→16:42)
[2021-12-24] MEDS: METRONIDAZOLE 500mg IVPB 500 MG/100 ML BAG IV SCH ×2 (08:34→16:42)
[2021-12-24] MEDS: ASPIRIN 325 MG TAB PO SCH (08:35)
[2021-12-24] MEDS: GABAPENTIN 300 MG CAP PO SCH ×3 (08:35→19:38)
[2021-12-24] MEDS: APIXABAN 2.5 MG TABLET PO SCH ×2 (08:35→19:38)
[2021-12-24] MEDS: CALCITROL 0.25 MCG CAP PO SCH (08:36)
[2021-12-24] MEDS: Levofloxacin 250mg IV 250 MG/50 ML BAG IV SCH (11:50)
[2021-12-24] MEDS: MORPHINE 2 MG/ML SYR IV PRN (13:04)
--- NOTE | 2021-12-24 13:22 | P.PN ---
Subjective Date of Service: 12/24/21 Primary Care Provider: Dr. Tao Chief Complaint: Colitis, Hypotension, BEVERLEY Patient reports persistent diarrhea. She has been tolerating diet. Stool for C. difficile is negative Stool WBCs negative. Creatinine level has not changed. Physical Examination - Vital Signs Temperature: 97.6 F Blood Pressure: 132/67 Pulse: 89 Respirations: 18 Pulse Ox (%): 98 Assessment And Plan - Plan Physical Exam General: Alert, In no apparent distress HEENT: EOMI, Sclerae nonicteric, moist oral mucosa Neck: Supple, Without JVD or thyroid abnormality Respiratory: Clear to auscultation bilaterally. Cardiovascular: Regular rate/rhythm, Normal S1 S2 Gastrointestinal: Normal bowel sounds, No rebound, No guarding, no tenderness. Musculoskeletal: No tenderness Integumentary: No rashes Neurological: Normal strength at 5/5 x4 extr, Normal affect. Assessment and plan Hypovolemic shock. Acute renal failure-likely prerenal Colitis History of C. difficile colitis. Non-anion gap metabolic acidosis. Elevated troponin Plan: Stool for C. difficile is negative. Stool WBC is also negative. Continue add IV Flagyl and Levaquin. Lomotil as needed for excessive diarrhea. Blood pressure has improved and patient is currently normotensive. Continue IV hydration. No significant change in serum creatinine compared to yesterday. Nephrology is following and managing BEVERLEY. Diet as tolerated. Monitor renal function to follow BEVERLEY and metabolic acidosis. No ACS.
[2021-12-24] MEDS: DIPHENOX/ATROP SULF 1 TAB PO PRN (16:42)
--- NOTE | 2021-12-24 19:19 | PN ---
Subjective: The patient is seen in room [address] [facility]. The patient is a lert, awake and comfortable. States she is overall feeling better. She says she is breathing better . She is not having any headache, nausea, vomiting. She states that she is not having any breathing difficulty, not having any chest pain. She is feeling a little bit better compared to yesterday as well. Objective: Vital Signs: Stable. Blood pressure 132/67. Last pulse was about 80 to 90 and regular, respirations around 16 and comfortable. Lungs: Clear anteriorly. Abdomen: Soft. Extremities: Reveal no edema. The patient is moving her extremities comfortably. Neurologic: She is answering questions appropriately and comfortably. Laboratory Data: Blood work reviewed. The patient's last WBC was 4.2, hemoglobin 10.2, hematocrit 3 2, platelet count of 134. Sodium 139, potassium 3.9, chloride 116, bicarb is 18, BUN 37, creatinine 4.28. Assessment And Plan: 1.Acute kidney injury, overall stabilizing. The patient with hypertension, hypokalemia, on IV fluid s, improving. 2.Hyponatremia, resolving. Sodium now 139. 3.Hypokalemia, resolved. Potassium at 3.9. 4.Hypertension. Blood pressure is reasonably controlled. Continue to monitor. Holding her home an tihypertensives at this point. Salt restriction counseled. 5.Question sepsis, question colitis. The patient is currently on antibiotics, improving, feeling overall well. Continue to monitor with repeat BMP in the morning. /VEGA Voice ID: [id number] Report ID: [id number]
[2021-12-24] MEDS: ATORVASTATIN 20 MG TAB PO SCH (19:37)
[2021-12-25] MEDS: NA CHLORIDE 0.9% 1,000 ML IV SCH ×3 (00:20→17:11)
[2021-12-25] MEDS: METRONIDAZOLE 500mg IVPB 500 MG/100 ML BAG IV SCH ×3 (00:20→17:12)
[2021-12-25] MEDS: MORPHINE 2 MG/ML SYR IV PRN (04:40)
[2021-12-25 05:33] LABS: Absolute Lymphocytes (CBC) 0.9 K/uL (0.7-4.9); Hematocrit 27.9 % (36.0-45.0); Lymphocytes % 19.2 % (15.3-44.8); MPV 9.4 fL (7.6-11.3); RBC Red Blood Cell Count 3.21 M/uL (3.86-4.86)
[2021-12-25 05:58] LABS: Albumin 2.2 g/dL (3.4-5.0); Bilirubin Total 0.2 mg/dL (0.2-1.0); Protein, Total 5.6 g/dL (6.4-8.2)
[2021-12-25] MEDS: PANTOPRAZOLE 40MG TABLET PO SCH (06:01)
[2021-12-25] MEDS: LEVOTHYROXINE SOD 0.075 MG TAB PO SCH (06:01)
[2021-12-25] MEDS: METOPROLOL XL 25 MG TAB PO SCH (06:01)
[2021-12-25] MEDS: GABAPENTIN 300 MG CAP PO SCH ×3 (09:12→20:54)
[2021-12-25] MEDS: CALCITROL 0.25 MCG CAP PO SCH (09:13)
[2021-12-25] MEDS: APIXABAN 2.5 MG TABLET PO SCH ×2 (09:15→20:55)
[2021-12-25] MEDS: SODIUM BICARB 325 MG TAB PO SCH ×3 (09:18→17:13)
[2021-12-25] MEDS: ASPIRIN 325 MG TAB PO SCH (09:21)
[2021-12-25] MEDS: Levofloxacin 250mg IV 250 MG/50 ML BAG IV SCH (11:11)
[2021-12-25] MEDS: ACETAMINOPHEN 500 MG TAB PO PRN (11:13)
[2021-12-25] MEDS: DIPHENOX/ATROP SULF 1 TAB PO PRN ×2 (11:50→20:55)
[2021-12-25] MEDS: GUAIFENESIN/DM 5 ML UCUP PO PRN (12:27)
--- NOTE | 2021-12-25 13:49 | P.PN ---
Subjective Date of Service: 12/25/21 Primary Care Provider: Dr. Tao Chief Complaint: Colitis, Hypotension, BEVERLEY Patient reports persistent diarrhea but diarrhea frequency has decreased Creatinine level has still not significantly changed. Physical Examination - Vital Signs Temperature: 97.9 F Blood Pressure: 147/77 Pulse: 88 Respirations: 18 Pulse Ox (%): 97 Assessment And Plan - Plan Physical Exam General: Alert, In no apparent distress HEENT: EOMI, Sclerae nonicteric, moist oral mucosa Neck: Supple, Without JVD or thyroid abnormality Respiratory: Clear to auscultation bilaterally. Cardiovascular: Regular rate/rhythm, Normal S1 S2 Gastrointestinal: Normal bowel sounds, No rebound, No guarding, no tenderness. Musculoskeletal: No tenderness Integumentary: No rashes Neurological: Normal strength at 5/5 x4 extr, Normal affect. Assessment and plan Hypovolemic shock. Acute renal failure-likely prerenal Colitis History of C. difficile colitis. Non-anion gap metabolic acidosis. Elevated troponin Plan: Stool for C. difficile is negative. Stool WBC is also negative. Continue IV Flagyl and Levaquin. Lomotil as needed for excessive diarrhea. Blood pressure has improved and patient is currently normotensive. Continue IV hydration. No significant change in serum creatinine compared to yesterday. Nephrology is following and managing BEVERLEY. She is on sodium bicarb for metabolic acidosis. Diet as tolerated. Monitor renal function to follow BEVERLEY and metabolic acidosis. No ACS.
--- NOTE | 2021-12-25 19:14 | PN ---
Date of Progress Note: 12/25/2021 Subjective: She is a 56-year-old female with history of chronic kidney disease/acute renal failure i n the past as well. The patient is looking comfortable today. Denies any headache, nausea, vomiting . She is not having any difficulty breathing. Her blood pressure has been reasonable between 116 sy stolic to about 147 systolic. Last blood pressure was about 147/77. Objective: Vital Signs: The patient's blood pressure last was 147/77, pulse was about 80 and regular , respirations on my exam are about 14 and comfortable, O2 sats are 97% on room air. Lungs: Clear to auscultation. Abdomen: Soft. Extremities: Reveal no edema. Skin: On the alcoholism worker side. Heart: Sounds are regular. Medications: Reviewed. The patient is on Tylenol. She is on Eliquis. She is on Lipitor. She is o n vitamin D. She is on bicarb. She is getting antibiotics with Levaquin. She is on levothyroxine. She is also on metronidazole and Zofran p.r.n. Laboratory Data: Reviewed. The patient's labs show WBC count 4.5, relatively stable compared to yes terday. Hemoglobin 9.1 from 10.2 yesterday, hematocrit 27.9, platelet counts are 166. The patient i s also getting IV fluids. Chemistries show sodium 139 relatively stable from yesterday, potassium st able at 4.0, chloride is 117, bicarb is reasonably stable at 18, BUN at 32 somewhat improved from yes terday from 37. Creatinine is slightly lower from yesterday at 4.23 compared to yesterday at 4.28. Albumin 2.2. Assessment And Plan: Acute kidney injury/chronic kidney disease/volume depletion/history of hyperten layton/metabolic acidosis. 1.The patient with hypocalcemia. Continue with vitamin D replacement for hypocalcemia. Continue wi th IV fluids. 2.The patient is volume depleted. Tolerating fluids well currently. Repeat BMP tomorrow. 3.Anemia, reasonably stable. May need Procrit if hemoglobin drops any further. 4.Hypertension, reasonably controlled. Continue to monitor with current plan right now. Salt restr iction. The patient is getting some salt with IV fluids also. Diet counseled. 5.Metabolic acidosis. The patient is on bicarb replacement. /MODL Voice ID: [id number] Report ID: [id number]
[2021-12-25] MEDS: ATORVASTATIN 20 MG TAB PO SCH (20:55)
[2021-12-25] MEDS: MORPHINE 4 MG/ML SYR IV PRN (20:56)
[2021-12-26] MEDS: NA CHLORIDE 0.9% 1,000 ML IV SCH ×3 (01:47→10:08)
[2021-12-26] MEDS: METRONIDAZOLE 500mg IVPB 500 MG/100 ML BAG IV SCH ×3 (01:48→17:00)
[2021-12-26] MEDS: ACETAMINOPHEN 500 MG TAB PO PRN ×2 (02:01→17:42)
[2021-12-26] MEDS: PANTOPRAZOLE 40MG TABLET PO SCH (06:18)
[2021-12-26] MEDS: METOPROLOL XL 25 MG TAB PO SCH (06:18)
[2021-12-26] MEDS: LEVOTHYROXINE SOD 0.075 MG TAB PO SCH (06:18)
[2021-12-26 06:24] LABS: Albumin 2.2 g/dL (3.4-5.0); Bilirubin Total 0.2 mg/dL (0.2-1.0); Potassium 4.1 mmol/L (3.5-5.1); Protein, Total 5.7 g/dL (6.4-8.2)
[2021-12-26 06:25] LABS: Magnesium 1.4 mg/dL (1.8-2.4)
[2021-12-26] MEDS ORDERED: Magnesium Sulfate 2gm IVPB 2 G/50 ML BAG IV ONE (06:31)
[2021-12-26 06:39] LABS: Absolute Lymphocytes (CBC) 1.2 K/uL (0.7-4.9); Hematocrit 30.4 % (36.0-45.0); Lymphocytes % 20.5 % (15.3-44.8); MPV 9.2 fL (7.6-11.3); RBC Red Blood Cell Count 3.42 M/uL (3.86-4.86)
[2021-12-26] MEDS: SODIUM BICARB 325 MG TAB PO SCH ×3 (09:57→17:38)
[2021-12-26] MEDS: ASPIRIN 325 MG TAB PO SCH (09:57)
[2021-12-26] MEDS: GABAPENTIN 300 MG CAP PO SCH ×3 (09:57→20:34)
[2021-12-26] MEDS: APIXABAN 2.5 MG TABLET PO SCH ×2 (09:57→20:34)
[2021-12-26] MEDS: CALCITROL 0.25 MCG CAP PO SCH (09:57)
[2021-12-26] MEDS: MORPHINE 4 MG/ML SYR IV PRN ×2 (10:08→23:53)
[2021-12-26] MEDS: Levofloxacin 250mg IV 250 MG/50 ML BAG IV SCH (12:41)
[2021-12-26] MEDS: NACHLORIDE 0.45% 1,000 ML IV SCH (12:41)
--- NOTE | 2021-12-26 16:40 | P.PN ---
Subjective Date of Service: 12/26/21 Primary Care Provider: Dr. Tao Chief Complaint: Colitis, Hypotension, BEVERLEY Patient patient reports significant improvement in the diarrhea. She stated no diarrhea today. Creatinine level slightly improved from yesterday. Physical Examination - Vital Signs Temperature: 97.4 F Blood Pressure: 172/81 Pulse: 81 Respirations: 20 Pulse Ox (%): 97 - Studies Microbiology Data (last 24 hrs): 12/21/21 14:50 Blood - Blood Aerobic Blood Culture - Final No growth in 5 days. 12/21/21 14:50 Blood - Blood Anaerobic Blood Culture - Final No growth in 5 days. Assessment And Plan - Plan Physical Exam General: Alert, In no apparent distress HEENT: EOMI, Sclerae nonicteric, moist oral mucosa Neck: Supple, Without JVD or thyroid abnormality Respiratory: Clear to auscultation bilaterally. Cardiovascular: Regular rate/rhythm, Normal S1 S2 Gastrointestinal: Normal bowel sounds, no tenderness. Musculoskeletal: No tenderness Integumentary: No rashes Neurological: Normal strength at 5/5 x4 extr, Normal affect. Assessment and plan Hypovolemic shock. Acute renal failure-likely prerenal Colitis History of C. difficile colitis. Non-anion gap metabolic acidosis. Elevated troponin Plan: Stool for C. difficile is negative. Stool WBC is also negative. Continue IV Flagyl and Levaquin. Lomotil as needed for excessive diarrhea. Diarrhea significantly improved Blood pressure has improved and patient is currently normotensive. Continue IV hydration. No significant change in serum creatinine compared to yesterday. Nephrology is following and managing BEVERLEY. She is on sodium bicarb for metabolic acidosis. Nephrology considering the possibility of temporary hemodialysis. Diet as tolerated. Monitor renal function to follow BEVERLEY and metabolic acidosis.
[2021-12-26] MEDS: ATORVASTATIN 20 MG TAB PO SCH (20:34)
--- NOTE | 2021-12-26 22:24 | P.PN ---
Date of Service: 12/26/21 Vital Signs Temp Pulse Resp BP Pulse Ox 98.7 F 83 15 168/85 H 98 12/26/21 20:00 12/26/21 20:00 12/26/21 20:00 12/26/21 20:00 12/26/21 20:00 Medications Acetaminophen (Acetaminophen 500 Mg Tab) 500 mg PO Q4HP PRN PRN Reason: TEMP > 100.4' F Last Admin: 12/26/21 17:42 Dose: 500 mg Documented by: Apixaban (Apixaban 2.5 Mg Tablet) 2.5 mg PO BID [facility] Last Admin: 12/26/21 20:34 Dose: 2.5 mg Documented by: Aspirin (Aspirin 325 Mg Tab) 325 mg PO DAILY [facility] Last Admin: 12/26/21 09:57 Dose: 325 mg Documented by: Atorvastatin Calcium (Atorvastatin 20 Mg Tab) 20 mg PO BEDTIME [facility] Last Admin: 12/26/21 20:34 Dose: 20 mg Documented by: Calcitriol (Calcitrol 0.25 Mcg Cap) 0.5 mcg PO DAILY [facility] Last Admin: 12/26/21 09:57 Dose: 0.5 mcg Documented by: Gabapentin (Gabapentin 300 Mg Cap) 600 mg PO TID [facility] Last Admin: 12/26/21 20:34 Dose: 600 mg Documented by: Guaifenesin/Dextromethorphan (Guaifenesin/Dm 5 Ml Ucup) 10 ml PO Q6H PRN PRN Reason: COUGH Last Admin: 12/25/21 12:27 Dose: 10 ml Documented by: Levofloxacin/Dextrose (Levaquin 250mg/50 Ml Ivpb) 250 mg in 50 mls @ 50 mls/hr IV Q24H [facility]; Protocol Last Admin: 12/26/21 12:41 Dose: 50 mls Documented by: Metronidazole/Sodium Chloride (Flagyl 500mg/100 Ml Iv Premix) 500 mg in 100 mls @ 200 mls/hr IV Q8HR [facility]; Protocol Last Admin: 12/26/21 17:00 Dose: Not Given Documented by: Sodium Chloride (Sodium Chloride 0.45%) 1,000 mls @ 75 mls/hr IV .[id number] [facility] Last Admin: 12/26/21 12:41 Dose: 1,000 mls Documented by: Levothyroxine Sodium (Levothyroxine Sod 0.075 Mg Tab) 0.075 mg PO DAILYAC [facility] Last Admin: 12/26/21 06:18 Dose: 0.075 mg Documented by: Metoprolol Succinate (Metoprolol Xl 25 Mg Tab) 25 mg PO [id number] [facility] Last Admin: 12/26/21 06:18 Dose: 25 mg Documented by: Morphine Sulfate (Morphine 4 Mg/Ml Syr) 2 mg IV Q4H PRN PRN Reason: Pain scale 5-7 (Moderate) Last Admin: 12/26/21 10:08 Dose: 2 mg Documented by: Ondansetron HCl (Ondansetron 4 Mg/2 Ml Vial) 4 mg IV Q6HP PRN PRN Reason: NAUSEA / VOMITING Pantoprazole Sodium (Pantoprazole 40mg Tablet) 40 mg PO DAILYAC [facility]; Protocol Last Admin: 12/26/21 06:18 Dose: 40 mg Documented by: Sodium Bicarbonate (Sodium Bicarb 325 Mg Tab) 650 mg PO TIDWM [facility] Last Admin: 12/26/21 17:38 Dose: 650 mg Documented by: Sodium Chloride (Flush Normal Saline 10 Ml) 10 ml IV BID [facility] Last Admin: 12/26/21 20:33 Dose: 10 ml Documented by: Microbiology Results 12/21/21 16:54 Blood - Blood Aerobic Blood Culture - Final No growth in 5 days. 12/21/21 16:54 Blood - Blood Anaerobic Blood Culture - Final 12/21/21 14:50 Blood - Blood Aerobic Blood Culture - Final No growth in 5 days. 12/21/21 14:50 Blood - Blood Anaerobic Blood Culture - Final No growth in 5 days. Assessment/ Plan: Nephrology No dyspnea No chest pain Malaise and weakness. Feels swollen today. No acute events overnight. Case reviewed with her by phone. Vitals, medications, blood work and imaging reviewed in the chart. General: In no apparent distress, Cooperative HEENT: Atraumatic Neck: Supple Respiratory: Clear to auscultation bilaterally Cardiovascular: No edema, Regular rate/rhythm Gastrointestinal: Soft and benign, Non-distended Musculoskeletal: No clubbing, No contractures Integumentary: No rashes, No cyanosis Neurological: Normal speech Laboratory Data (last 24 hrs) 12/21/21 16:54: Sodium 134 L, Potassium 3.5, BUN 37 H, Creatinine 4.29 H, Glucose 106, Magnesium 1.9, Total Bilirubin 0.3, AST 126 H, ALT 39, Alkaline Phosphatase 79, Lipase 30 L 12/21/21 14:35: PT 13.7 H, INR 1.19 12/21/21 14:35: WBC 6.00, Hgb 12.9, Hct 39.4, Plt Count 212 Imagings Data: EXAM DESCRIPTION: CT - Abdomen Pelvis Wo Contrast - 12/21/2021 6:59 pm CLINICAL HISTORY: Abdominal pain. ABD PAIN COMPARISON: No comparisons TECHNIQUE: CT imaging of the abdomen and pelvis was performed without contrast. Solid organ, bowel and vascular assessment is limited due to lack of IV and oral contrast. All CT scans are performed using dose optimization technique as appropriate and may include automated exposure control or mA/KV adjustment according to patient size. FINDINGS: Mild opacities are present in both lung bases, greater on the right. The liver, spleen, pancreas, adrenal glands and kidneys are within normal limits for a limited non-contrast examination. No bowel obstruction, free air, free fluid or abscess. Mild thickening and in flammation of the cecum and ascending colon suspected. The appendix is not identified as a discrete structure, however, no secondary findings of appendicitis are identified. Lumbar orthopedic hardware is present. Left common iliac artery stent is in place. IMPRESSION: Mild right-sided colitis is suspected. Mild bibasilar lung opacities, greater on the right, could indicate infection. EXAM DESCRIPTION: RAD - Chest Single View - 12/21/2021 3:19 pm CLINICAL HISTORY: DYSPNEA Chest pain. COMPARISON: CHEST SINGLE VIEW dated 11/17/2013; CHEST PA AND LAT 2 VIEW dated 10/07/2009 FINDINGS: Portable technique limits examination quality. The lungs are grossly clear. The heart is normal in size. No displaced fractures.Cervical hardware plate is in place. IMPRESSION: No acute intrathoracic process suspected. Conclusions/Impression: BEVERLEY in the setting of hypotension/ hypovolemia consistent with ATN (FeNa 2.74%) CKD III with proteinuria -No NSAIDs -Change IVF 1/2NS Hyponatremia, resolved Hypokalemia -Replete potassium prn Acidosis -Continue oral bicarb HTN with CKD complicated by hypotension -Hold antihypertensives at this time Moderate malnutrition -Advance diet as tolerated Anemia in chronic illness -Monitor CBC CKD MBD -Continue Calcitriol Sepsis Right sided colitis -Continue Levaquin and flagyl -Follow up cultures -IVF bolus as needed Case reviewed with Dr. Robles
[2021-12-27] MEDS: METRONIDAZOLE 500mg IVPB 500 MG/100 ML BAG IV SCH ×3 (01:49→16:34)
[2021-12-27] MEDS: NACHLORIDE 0.45% 1,000 ML IV SCH ×3 (01:58→20:50)
[2021-12-27] MEDS: METOPROLOL XL 25 MG TAB PO SCH (05:32)
[2021-12-27] MEDS: PANTOPRAZOLE 40MG TABLET PO SCH (05:32)
[2021-12-27] MEDS: ACETAMINOPHEN 500 MG TAB PO PRN ×3 (05:33→16:40)
[2021-12-27] MEDS: LEVOTHYROXINE SOD 0.075 MG TAB PO SCH (05:33)
--- NOTE | 2021-12-27 06:07 | P.PN ---
Date of Service: 12/27/21 Subjective: No acute events overnight, denies any further diarrhea, last BM yesterday, small and loose Continues with a headache ROS: 10 point ROS as noted above, otherwise negative Physical exam GEN: Alert, oriented, NAD HEENT: Normal conjunctiva, sclera anicteric CV: Regular rate and rhythm, no edema Pulm: Nonlabored respirations on room air ABD: Soft, mild tenderness Neuro: Normal speech, normal affect Problem List Hypovolemic shock. Acute renal failure-likely prerenal UTI Colitis History of C. difficile colitis. Non-anion gap metabolic acidosis. Elevated troponin C. difficile negative, WBC normal UA with bacteriuria, patient reportedly with some UTI symptoms. Urine culture not sent due to high squamous epithelial cells. Repeat UA was obtained Continue Levaquin and Flagyl Lomotil for diarrhea. Patient is improving BEVERLEY slightly improved today, nephrology following, on IV fluids, received sodium bicarb for her metabolic acidosis Nephrology was initially considering possible temporary hemodialysis, may be able to avoid now with improvement Diet as tolerated Unclear patient's baseline renal function, she is unsure Overall seems to be slowly improving Code: Full Dispo: Home, likely 1-2 days Time Spent Managing Pts Care (In Minutes): 35
[2021-12-27 06:33] LABS: Absolute Lymphocytes (CBC) 1.1 K/uL (0.7-4.9); Hematocrit 30.3 % (36.0-45.0); Lymphocytes % 19.8 % (15.3-44.8); MPV 8.2 fL (7.6-11.3); RBC Red Blood Cell Count 3.46 M/uL (3.86-4.86)
[2021-12-27 06:49] LABS: Albumin 2.4 g/dL (3.4-5.0); Magnesium 1.8 mg/dL (1.8-2.4); Phosphorus 3.8 mg/dL (2.5-4.9); Potassium 3.6 mmol/L (3.5-5.1); Uric Acid 5.3 mg/dL (2.6-6.0)
[2021-12-27 07:55] LABS: Blood Morphology Comment NOT SEEN (NOT SEEN); Platelet Estimate ADEQ
[2021-12-27] MEDS: CALCITROL 0.25 MCG CAP PO SCH (08:41)
[2021-12-27] MEDS: SODIUM BICARB 325 MG TAB PO SCH ×3 (08:41→16:34)
[2021-12-27] MEDS: GABAPENTIN 300 MG CAP PO SCH ×3 (08:41→20:47)
[2021-12-27] MEDS: APIXABAN 2.5 MG TABLET PO SCH ×2 (08:41→20:48)
[2021-12-27] MEDS: ASPIRIN 325 MG TAB PO SCH (08:41)
[2021-12-27] MEDS ORDERED: MAGNESIUM SULFATE 1 gm IVPB 1 GM/100 ML BAG IV ONE (09:00)
[2021-12-27 09:17] LABS: Urine Appearance CLOUDY (Clear); Urine Bilirubin NEGATIVE (Negative); Urine Blood 2+ (Negative); Urine Color YELLOW (Yellow); Urine Glucose NEGATIVE (Negative); Urine Protein NEGATIVE (Negative); Urine Specific Gravity <=1.005 (1.005-1.030); Urine Urobilinogen 0.2 mg/dL (0.2-1.0)
[2021-12-27 09:52] LABS: Urine Bacteria >50 /HPF (<20); Urine Mucus 1+ /HPF (NONE SEEN); Urine Urothelial Cells <5 /HPF (NONE SEEN)
[2021-12-27 10:08] LABS: UR PROTEIN 27.6 mg/dL (<11.9); Urine Protein/Creatinine Ratio 0.84 ratio (<0.15)
[2021-12-27] MEDS: Levofloxacin 250mg IV 250 MG/50 ML BAG IV SCH (12:32)
[2021-12-27] MEDS ORDERED: POTASSIUM CL SA 10 MEQ TAB PO ONE (19:20)
--- NOTE | 2021-12-27 19:26 | P.PN ---
Date of Service: 12/27/21 Vital Signs Temp Pulse Resp BP Pulse Ox 97.7 F 79 15 176/91 H 98 12/27/21 16:00 12/27/21 16:00 12/27/21 16:00 12/27/21 16:00 12/27/21 16:00 Medications Acetaminophen (Acetaminophen 500 Mg Tab) 500 mg PO Q4HP PRN PRN Reason: TEMP > 100.4' F Last Admin: 12/27/21 16:40 Dose: 500 mg Documented by: Apixaban (Apixaban 2.5 Mg Tablet) 2.5 mg PO BID [facility] Last Admin: 12/27/21 08:41 Dose: 2.5 mg Documented by: Aspirin (Aspirin 325 Mg Tab) 325 mg PO DAILY [facility] Last Admin: 12/27/21 08:41 Dose: 325 mg Documented by: Atorvastatin Calcium (Atorvastatin 20 Mg Tab) 20 mg PO BEDTIME [facility] Last Admin: 12/26/21 20:34 Dose: 20 mg Documented by: Calcitriol (Calcitrol 0.25 Mcg Cap) 0.5 mcg PO DAILY [facility] Last Admin: 12/27/21 08:41 Dose: 0.5 mcg Documented by: Gabapentin (Gabapentin 300 Mg Cap) 600 mg PO TID [facility] Last Admin: 12/27/21 14:56 Dose: 600 mg Documented by: Guaifenesin/Dextromethorphan (Guaifenesin/Dm 5 Ml Ucup) 10 ml PO Q6H PRN PRN Reason: COUGH Last Admin: 12/25/21 12:27 Dose: 10 ml Documented by: Levofloxacin/Dextrose (Levaquin 250mg/50 Ml Ivpb) 250 mg in 50 mls @ 50 mls/hr IV Q24H [facility]; Protocol Last Admin: 12/27/21 12:32 Dose: 50 mls Documented by: Metronidazole/Sodium Chloride (Flagyl 500mg/100 Ml Iv Premix) 500 mg in 100 mls @ 200 mls/hr IV Q8HR [facility]; Protocol Last Admin: 12/27/21 16:34 Dose: 100 mls Documented by: Sodium Chloride (Sodium Chloride 0.45%) 1,000 mls @ 75 mls/hr IV [id number] [facility] Last Admin: 12/27/21 14:40 Dose: Not Given Documented by: Lactobacillus Acidoph/Bulgaricus (Lactobacillus/Acidophilus Tab) 1 tab PO TID [facility] Levothyroxine Sodium (Levothyroxine Sod 0.075 Mg Tab) 0.075 mg PO DAILYAC [facility] Last Admin: 12/27/21 05:33 Dose: 0.075 mg Documented by: Metoprolol Succinate (Metoprolol Xl 25 Mg Tab) 25 mg PO [id number] [facility] Last Admin: 12/27/21 05:32 Dose: 25 mg Documented by: Morphine Sulfate (Morphine 4 Mg/Ml Syr) 2 mg IV Q4H PRN PRN Reason: Pain scale 5-7 (Moderate) Last Admin: 12/26/21 23:53 Dose: 2 mg Documented by: Ondansetron HCl (Ondansetron 4 Mg/2 Ml Vial) 4 mg IV Q6HP PRN PRN Reason: NAUSEA / VOMITING Pantoprazole Sodium (Pantoprazole 40mg Tablet) 40 mg PO DAILYAC [facility]; Protocol Last Admin: 12/27/21 05:32 Dose: 40 mg Documented by: Potassium Chloride (Potassium Cl Sa 10 Meq Tab) 40 meq PO 1X ONE Stop: 12/27/21 19:21 Sodium Bicarbonate (Sodium Bicarb 325 Mg Tab) 650 mg PO TIDWM [facility] Last Admin: 12/27/21 16:34 Dose: 650 mg Documented by: Sodium Chloride (Flush Normal Saline 10 Ml) 10 ml IV BID [facility] Last Admin: 12/27/21 08:42 Dose: Not Given Documented by: Microbiology Results 12/21/21 16:54 Blood - Blood Aerobic Blood Culture - Final No growth in 5 days. 12/21/21 16:54 Blood - Blood Anaerobic Blood Culture - Final 12/21/21 14:50 Blood - Blood Aerobic Blood Culture - Final No growth in 5 days. 12/21/21 14:50 Blood - Blood Anaerobic Blood Culture - Final No growth in 5 days. Assessment/ Plan: Nephrology No dyspnea No chest pain Malaise and weakness. Soft stools. No acute events overnight. Case reviewed with her . Vitals, medications, blood work and imaging reviewed in the chart. General: In no apparent distress, Cooperative HEENT: Atraumatic Neck: Supple Respiratory: Clear to auscultation bilaterally Cardiovascular: No edema, Regular rate/rhythm Gastrointestinal: Soft and benign, Non-distended Musculoskeletal: No clubbing, No contractures Integumentary: No rashes, No cyanosis Neurological: Normal speech Laboratory Data (last 24 hrs) 12/21/21 16:54: Sodium 134 L, Potassium 3.5, BUN 37 H, Creatinine 4.29 H, Glucose 106, Magnesium 1.9, Total Bilirubin 0.3, AST 126 H, ALT 39, Alkaline Phosphatase 79, Lipase 30 L 12/21/21 14:35: PT 13.7 H, INR 1.19 12/21/21 14:35: WBC 6.00, Hgb 12.9, Hct 39.4, Plt Count 212 Imagings Data: EXAM DESCRIPTION: CT - Abdomen Pelvis Wo Contrast - 12/21/2021 6:59 pm CLINICAL HISTORY: Abdominal pain. ABD PAIN COMPARISON: No comparisons TECHNIQUE: CT imaging of the abdomen and pelvis was performed without contrast. Solid organ, bowel and vascular assessment is limited due to lack of IV and oral contrast. All CT scans are performed using dose optimization technique as appropriate and may include automated exposure control or mA/KV adjustment according to patient size. FINDINGS: Mild opacities are present in both lung bases, greater on the right. The liver, spleen, pancreas, adrenal glands and kidneys are within normal limits for a limited non-contrast examination. No bowel obstruction, free air, free fluid or abscess. Mild thickening and inflammation of the cecum and ascending colon suspected. The appendix is not identified as a discrete structure, however, no secondary findings of appendicitis are identified. Lumbar orthopedic hardware is present. Left common iliac artery stent is in place. IMPRESSION: Mild right-sided colitis is suspected. Mild bibasilar lung opacities, greater on the right, could indicate infection. EXAM DESCRIPTION: RAD - Chest Single View - 12/21/2021 3:19 pm CLINICAL HISTORY: DYSPNEA Chest pain. COMPARISON: CHEST SINGLE VIEW dated 11/17/2013; CHEST PA AND LAT 2 VIEW dated 10/07/2009 FINDINGS: Portable technique limits examination quality. The lungs are grossly clear. The heart is normal in size. No displaced fractures.Cervical hardware plate is in place. IMPRESSION: No acute intrathoracic process suspected. Conclusions/Impression: BEVERLEY in the setting of hypotension/ hypovolemia consistent with ATN (FeNa 2.74%) CKD III with proteinuria -No NSAIDs -Continue IVF 1/2NS Hyponatremia, resolved Hypokalemia -Replete potassium Acidosis -Continue oral bicarb HTN with CKD -Continue Metoprolol -Restart Lisinopril 10mg BID Moderate malnutrition -Advance diet as tolerated Anemia in chronic illness -Monitor CBC CKD MBD -Continue Calcitriol Sepsis Right sided colitis -Continue Levaquin and flagyl -Follow up cultures -IVF bolus as needed Case reviewed with Dr. Murphy
[2021-12-27] MEDS: ATORVASTATIN 20 MG TAB PO SCH (20:47)
[2021-12-27] MEDS: GUAIFENESIN/DM 5 ML UCUP PO PRN (20:47)
[2021-12-27] MEDS: LACTOBACILLUS/ACIDOPHILUS TAB PO SCH (20:47)
[2021-12-27] MEDS: lisinopriL 10 MG TAB PO SCH (20:48)
[2021-12-27] MEDS: MORPHINE 4 MG/ML SYR IV PRN (20:57)
[2021-12-28] MEDS: METRONIDAZOLE 500mg IVPB 500 MG/100 ML BAG IV SCH ×3 (00:47→16:31)
[2021-12-28] MEDS: ACETAMINOPHEN 500 MG TAB PO PRN ×2 (03:30→22:55)
--- NOTE | 2021-12-28 06:15 | P.PN ---
Date of Service: 12/28/21 Subjective: Feels about the same as yesterday No new symptoms Continues with intermittent headache at times No abdominal tenderness, having some mildly loose stools Renal function improving ROS: 10 point ROS as noted above, otherwise negative Physical exam GEN: Alert, oriented, NAD HEENT: Normal conjunctiva, sclera anicteric CV: Regular rate and rhythm, no edema Pulm: Nonlabored respirations on room air ABD: Soft, nontender Neuro: Normal speech, normal affect Problem List Hypovolemic shock. Acute renal failure-likely prerenal UTI Colitis History of C. difficile colitis. Non-anion gap metabolic acidosis. Elevated troponin C. difficile negative, WBC normal UA with bacteriuria, patient reportedly with some UTI symptoms. Urine culture not sent due to high squamous epithelial cells. Repeat UA was obtained - +bacteruria Continue Levaquin and Flagyl Lomotil for diarrhea. Patient is improving BEVERLEY slowly improving, nephrology following, IV fluids, received sodium bicarb for her metabolic acidosis Diet as tolerated Unclear patient's baseline renal function, she is unsure as well improving f/u urine culture pt with recurrent UTIs over the last year, urine remains cloudy, +bacteruria Code: Full Dispo: Home, possibly tomorrow, awaiting urine culture Time Spent Managing Pts Care (In Minutes): 35
[2021-12-28] MEDS: PANTOPRAZOLE 40MG TABLET PO SCH (06:18)
[2021-12-28] MEDS: METOPROLOL XL 25 MG TAB PO SCH (06:18)
[2021-12-28 06:26] LABS: Albumin 2.2 g/dL (3.4-5.0); Magnesium 1.8 mg/dL (1.8-2.4); Phosphorus 3.2 mg/dL (2.5-4.9); Potassium 3.6 mmol/L (3.5-5.1)
[2021-12-28] MEDS: LEVOTHYROXINE SOD 0.075 MG TAB PO SCH (07:21)
[2021-12-28] MEDS: MORPHINE 4 MG/ML SYR IV PRN ×2 (08:54→21:16)
[2021-12-28] MEDS: LACTOBACILLUS/ACIDOPHILUS TAB PO SCH ×3 (08:55→21:16)
[2021-12-28] MEDS: APIXABAN 2.5 MG TABLET PO SCH ×2 (08:55→21:15)
[2021-12-28] MEDS: SODIUM BICARB 325 MG TAB PO SCH ×3 (08:55→16:31)
[2021-12-28] MEDS: CALCITROL 0.25 MCG CAP PO SCH (08:55)
[2021-12-28] MEDS: ASPIRIN 325 MG TAB PO SCH (08:55)
[2021-12-28] MEDS: GABAPENTIN 300 MG CAP PO SCH ×3 (08:55→21:15)
[2021-12-28] MEDS ORDERED: MAGNESIUM SULFATE 1 gm IVPB 1 GM/100 ML BAG IV ONE (09:00)
[2021-12-28] MEDS: lisinopriL 10 MG TAB PO SCH ×2 (09:03→21:15)
[2021-12-28 09:10] LABS: Urine Appearance CLOUDY (Clear); Urine Bilirubin NEGATIVE (Negative); Urine Blood 2+ (Negative); Urine Color YELLOW (Yellow); Urine Glucose NEGATIVE (Negative); Urine Protein TRACE (Negative); Urine Urobilinogen 0.2 mg/dL (0.2-1.0)
[2021-12-28 09:28] LABS: Urine Bacteria >50 /HPF (<20); Urine Urothelial Cells <5 /HPF (NONE SEEN)
[2021-12-28] MEDS ORDERED: POTASSIUM CL SA 10 MEQ TAB PO ONE (10:47)
[2021-12-28] MEDS: NACHLORIDE 0.45% 1,000 ML IV SCH ×2 (11:45→15:14)
[2021-12-28] MEDS: Levofloxacin 250mg IV 250 MG/50 ML BAG IV SCH (13:59)
[2021-12-28] MEDS: HYDRALAZINE HCL 20 MG/ML VIAL IV PRN ×2 (17:20→23:53)
--- NOTE | 2021-12-28 20:28 | P.PN ---
Date of Service: 12/28/21 Vital Signs Temp Pulse Resp BP Pulse Ox 96.8 F 87 18 173/58 H 97 12/28/21 16:00 12/28/21 16:00 12/28/21 16:00 12/28/21 16:00 12/28/21 16:00 Medications Acetaminophen (Acetaminophen 500 Mg Tab) 500 mg PO Q4HP PRN PRN Reason: TEMP > 100.4' F Last Admin: 12/28/21 03:30 Dose: 500 mg Documented by: Apixaban (Apixaban 2.5 Mg Tablet) 2.5 mg PO BID [facility] Last Admin: 12/28/21 08:55 Dose: 2.5 mg Documented by: Aspirin (Aspirin 325 Mg Tab) 325 mg PO DAILY [facility] Last Admin: 12/28/21 08:55 Dose: 325 mg Documented by: Atorvastatin Calcium (Atorvastatin 20 Mg Tab) 20 mg PO BEDTIME [facility] Last Admin: 12/27/21 20:47 Dose: 20 mg Documented by: Calcitriol (Calcitrol 0.25 Mcg Cap) 0.5 mcg PO DAILY [facility] Last Admin: 12/28/21 08:55 Dose: 0.5 mcg Documented by: Gabapentin (Gabapentin 300 Mg Cap) 600 mg PO TID [facility] Last Admin: 12/28/21 13:59 Dose: 600 mg Documented by: Guaifenesin/Dextromethorphan (Guaifenesin/Dm 5 Ml Ucup) 10 ml PO Q6H PRN PRN Reason: COUGH Last Admin: 12/27/21 20:47 Dose: 10 ml Documented by: Hydralazine HCl (Hydralazine Hcl 20 Mg/Ml Vial) 10 mg IV Q6HP PRN PRN Reason: FOR SBP>160 OR DBP>100 MMHG Last Admin: 12/28/21 17:20 Dose: 10 mg Documented by: Levofloxacin/Dextrose (Levaquin 250mg/50 Ml Ivpb) 250 mg in 50 mls @ 50 mls/hr IV Q24H [facility]; Protocol Last Admin: 12/28/21 13:59 Dose: 50 mls Documented by: Metronidazole/Sodium Chloride (Flagyl 500mg/100 Ml Iv Premix) 500 mg in 100 mls @ 200 mls/hr IV Q8HR [facility]; Protocol Last Admin: 12/28/21 16:31 Dose: 100 mls Documented by: Sodium Chloride (Sodium Chloride 0.45%) 1,000 mls @ 100 mls/hr IV .Q10H [facility] Last Admin: 12/28/21 15:14 Dose: 1,000 mls Documented by: Lactobacillus Acidoph/Bulgaricus (Lactobacillus/Acidophilus Tab) 1 tab PO TID [facility] Last Admin: 12/28/21 13:59 Dose: 1 tab Documented by: Levothyroxine Sodium (Levothyroxine Sod 0.075 Mg Tab) 0.075 mg PO DAILYAC [facility] Last Admin: 12/28/21 07:21 Dose: 0.075 mg Documented by: Lisinopril (Lisinopril 10 Mg Tab) 10 mg PO BID [facility] Last Admin: 12/28/21 09:03 Dose: 10 mg Documented by: Metoprolol Succinate (Metoprolol Xl 25 Mg Tab) 25 mg PO [id number] [facility] Last Admin: 12/28/21 06:18 Dose: 25 mg Documented by: Morphine Sulfate (Morphine 4 Mg/Ml Syr) 2 mg IV Q4H PRN PRN Reason: Pain scale 5-7 (Moderate) Last Admin: 12/28/21 08:54 Dose: 2 mg Documented by: Ondansetron HCl (Ondansetron 4 Mg/2 Ml Vial) 4 mg IV Q6HP PRN PRN Reason: NAUSEA / VOMITING Pantoprazole Sodium (Pantoprazole 40mg Tablet) 40 mg PO DAILYAC [facility]; Protocol Last Admin: 12/28/21 06:18 Dose: 40 mg Documented by: Sodium Bicarbonate (Sodium Bicarb 325 Mg Tab) 650 mg PO TIDWM [facility] Last Admin: 12/28/21 16:31 Dose: 650 mg Documented by: Sodium Chloride (Flush Normal Saline 10 Ml) 10 ml IV BID [facility] Last Admin: 12/28/21 08:55 Dose: Not Given Documented by: Microbiology Results 12/21/21 16:54 Blood - Blood Aerobic Blood Culture - Final No growth in 5 days. 12/21/21 16:54 Blood - Blood Anaerobic Blood Culture - Final 12/21/21 14:50 Blood - Blood Aerobic Blood Culture - Final No growth in 5 days. 12/21/21 14:50 Blood - Blood Anaerobic Blood Culture - Final No growth in 5 days. Assessment/ Plan: Nephrology No dyspnea No chest pain Feeling better No acute events overnight. Vitals, medications, blood work and imaging reviewed in the chart. General: In no apparent distress, Cooperative HEENT: Atraumatic Neck: Supple Respiratory: Clear to auscultation bilaterally Cardiovascular: Trace edema, Regular rate/rhythm Gastrointestinal: Soft and benign, Non-distended Musculoskeletal: No clubbing, No contractures Integumentary: No rashes, No cyanosis Neurological: Normal speech Laboratory Data (last 24 hrs) 12/21/21 16:54: Sodium 134 L, Potassium 3.5, BUN 37 H, Creatinine 4.29 H, Glucose 106, Magnesium 1.9, Total Bilirubin 0.3, AST 126 H, ALT 39, Alkaline Phosphatase 79, Lipase 30 L 12/21/21 14:35: PT 13.7 H, INR 1.19 12/21/21 14:35: WBC 6.00, Hgb 12.9, Hct 39.4, Plt Count 212 Imagings Data: EXAM DESCRIPTION: CT - Abdomen Pelvis Wo Contrast - 12/21/2021 6:59 pm CLINICAL HISTORY: Abdominal pain. ABD PAIN COMPARISON: No comparisons TECHNIQUE: CT imaging of the abdomen and pelvis was performed without contrast. Solid organ, bowel and vascular assessment is limited due to lack of IV and oral contrast. All CT scans are performed using dose optimization technique as appropriate and may include automated exposure control or mA/KV adjustment according to patient size. FINDINGS: Mild opacities are present in both lung bases, greater on the right. The liver, spleen, pancreas, adrenal glands and kidneys are within normal limits for a limited non-contrast examination. No bowel obstruction, free air, free fluid or abscess. Mild thickening and inflammation of the cecum and ascending colon suspected. The appendix is not identified as a discrete structure, however, no secondary findings of appendicitis are identified. Lumbar orthopedic hardware is present. Left common iliac artery stent is in p lace. IMPRESSION: Mild right-sided colitis is suspected. Mild bibasilar lung opacities, greater on the right, could indicate infection. EXAM DESCRIPTION: RAD - Chest Single View - 12/21/2021 3:19 pm CLINICAL HISTORY: DYSPNEA Chest pain. COMPARISON: CHEST SINGLE VIEW dated 11/17/2013; CHEST PA AND LAT 2 VIEW dated 10/07/2009 FINDINGS: Portable technique limits examination quality. The lungs are grossly clear. The heart is normal in size. No displaced fractures.Cervical hardware plate is in place. IMPRESSION: No acute intrathoracic process suspected. Conclusions/Impression: BEVERLEY in the setting of hypotension/ hypovolemia consistent with ATN (FeNa 2.74%) CKD III with proteinuria -No NSAIDs -Increase IVF 1/2NS Hyponatremia, resolved Hypokalemia -Replete potassium Acidosis -Continue oral bicarb HTN with CKD -Continue Metoprolol -Increase Lisinopril 20mg BID Moderate malnutrition -Advance diet as tolerated Anemia in chronic illness -Monitor CBC CKD MBD -Continue Calcitriol Sepsis Right sided colitis -Continue Levaquin and flagyl -Follow up cultures -IVF bolus as needed
[2021-12-28] MEDS: ATORVASTATIN 20 MG TAB PO SCH (21:15)
[2021-12-28] MEDS: ONDANSETRON 4 MG/2 ML VIAL IV PRN (21:26)
[2021-12-29] MEDS: METRONIDAZOLE 500mg IVPB 500 MG/100 ML BAG IV SCH ×3 (01:03→17:18)
[2021-12-29] MEDS: NACHLORIDE 0.45% 1,000 ML IV SCH ×2 (01:04→06:47)
[2021-12-29] MEDS: METOPROLOL XL 25 MG TAB PO SCH (03:46)
[2021-12-29] MEDS: ONDANSETRON 4 MG/2 ML VIAL IV PRN (03:47)
[2021-12-29] MEDS: MORPHINE 4 MG/ML SYR IV PRN (03:47)
[2021-12-29] MEDS: PANTOPRAZOLE 40MG TABLET PO SCH (05:30)
[2021-12-29] MEDS: LEVOTHYROXINE SOD 0.075 MG TAB PO SCH (05:30)
[2021-12-29 05:36] LABS: Hematocrit 27.1 % (36.0-45.0); MPV 7.8 fL (7.6-11.3); RBC Red Blood Cell Count 3.13 M/uL (3.86-4.86)
[2021-12-29 05:55] LABS: Albumin 2.3 g/dL (3.4-5.0); Magnesium 1.7 mg/dL (1.8-2.4); Phosphorus 3.5 mg/dL (2.5-4.9); Potassium 3.7 mmol/L (3.5-5.1)
--- NOTE | 2021-12-29 06:08 | P.PN ---
Date of Service: 12/29/21 Subjective: improving headache better after restarting anti-hypertensives feels legs are swelling up ROS: 10 point ROS as noted above, otherwise negative Physical exam GEN: Alert, oriented, NAD HEENT: Normal conjunctiva, sclera anicteric CV: Regular rate and rhythm, b/l edema Pulm: Nonlabored respirations on room air ABD: Soft, nontender Neuro: Normal speech, normal affect Problem List Hypovolemic shock. Acute renal failure UTI Colitis History of C. difficile colitis. Non-anion gap metabolic acidosis. Elevated troponin C. difficile negative, WBC normal pt with recurrent UTIs over the last year, urine remains cloudy, +bacteruria UA with bacteriuria, patient reportedly with some UTI symptoms. Urine culture not sent due to high squamous epithelial cells. Repeat UA was obtained - +bacteruria Culture: e.coli resistant to levaquin start rocephin 3/3 Lomotil for diarrhea. improving BEVERLEY slowly improving, nephrology following, IV fluids, received sodium bicarb for her metabolic acidosis dc IVF, repeat BMP tomorrow Unclear patient's baseline renal function, she is unsure as well Code: Full Dispo: Home, likely tomorrow, pending improved renal function Time Spent Managing Pts Care (In Minutes): 35
[2021-12-29] MEDS: ACETAMINOPHEN 500 MG TAB PO PRN ×2 (08:18→23:26)
[2021-12-29] MEDS: AMLODIPINE 5 MG TAB PO SCH ×2 (08:18→09:00)
[2021-12-29] MEDS ORDERED: MAGNESIUM SULFATE 1 gm IVPB 1 GM/100 ML BAG IV ONE (09:00)
[2021-12-29] MEDS: lisinopriL 10 MG TAB PO SCH (09:00)
[2021-12-29] MEDS: CALCITROL 0.25 MCG CAP PO SCH (09:37)
[2021-12-29] MEDS: CEFTRIAXONE 1,000 MG in NA CHLORIDE 0.9% 50 ML IVPB SCH (09:37)
[2021-12-29] MEDS: SODIUM BICARB 325 MG TAB PO SCH ×3 (09:38→17:17)
[2021-12-29] MEDS: ASPIRIN 325 MG TAB PO SCH (09:38)
[2021-12-29] MEDS: LACTOBACILLUS/ACIDOPHILUS TAB PO SCH ×3 (09:39→20:04)
[2021-12-29] MEDS: GABAPENTIN 300 MG CAP PO SCH ×3 (09:39→20:03)
[2021-12-29] MEDS: APIXABAN 2.5 MG TABLET PO SCH ×2 (09:39→20:03)
--- NOTE | 2021-12-29 10:36 | P.PN ---
Date of Service: 12/29/21 Vital Signs Temp Pulse Resp BP Pulse Ox 97.1 F 80 18 148/74 H 97 12/29/21 08:00 12/29/21 09:00 12/29/21 08:00 12/29/21 09:00 12/29/21 08:00 Medications Acetaminophen (Acetaminophen 500 Mg Tab) 500 mg PO Q4HP PRN PRN Reason: TEMP > 100.4' F Last Admin: 12/29/21 08:18 Dose: 500 mg Documented by: Amlodipine Besylate (Amlodipine 5 Mg Tab) 5 mg PO DAILY [facility] Last Admin: 12/29/21 09:00 Dose: Not Given Documented by: Apixaban (Apixaban 2.5 Mg Tablet) 2.5 mg PO BID [facility] Last Admin: 12/29/21 09:39 Dose: 2.5 mg Documented by: Aspirin (Aspirin 325 Mg Tab) 325 mg PO DAILY [facility] Last Admin: 12/29/21 09:38 Dose: 325 mg Documented by: Atorvastatin Calcium (Atorvastatin 20 Mg Tab) 20 mg PO BEDTIME [facility] Last Admin: 12/28/21 21:15 Dose: 20 mg Documented by: Calcitriol (Calcitrol 0.25 Mcg Cap) 0.5 mcg PO DAILY [facility] Last Admin: 12/29/21 09:37 Dose: 0.5 mcg Documented by: Gabapentin (Gabapentin 300 Mg Cap) 600 mg PO TID [facility] Last Admin: 12/29/21 09:39 Dose: 600 mg Documented by: Guaifenesin/Dextromethorphan (Guaifenesin/Dm 5 Ml Ucup) 10 ml PO Q6H PRN PRN Reason: COUGH Last Admin: 12/27/21 20:47 Dose: 10 ml Documented by: Hydralazine HCl (Hydralazine Hcl 20 Mg/Ml Vial) 10 mg IV Q6HP PRN PRN Reason: FOR SBP>160 OR DBP>100 MMHG Last Admin: 12/28/21 23:53 Dose: 10 mg Documented by: Metronidazole/Sodium Chloride (Flagyl 500mg/100 Ml Iv Premix) 500 mg in 100 mls @ 200 mls/hr IV Q8HR [facility]; Protocol Last Admin: 12/29/21 09:39 Dose: 100 mls Documented by: Ceftriaxone Sodium 1,000 mg/ (Sodium Chloride) 50 mls @ 100 mls/hr IVPB DAILY [facility]; Protocol Last Admin: 12/29/21 09:37 Dose: 50 mls Documented by: Lactobacillus Acidoph/Bulgaricus (Lactobacillus/Acidophilus Tab) 1 tab PO TID [facility] Last Admin: 12/29/21 09:39 Dose: 1 tab Documented by: Levothyroxine Sodium (Levothyroxine Sod 0.075 Mg Tab) 0.075 mg PO DAILYAC [facility] Last Admin: 12/29/21 05:30 Dose: 0.075 mg Documented by: Losartan Potassium (Losartan Potassium 50 Mg Tablet) 50 mg PO BID [facility] Metoprolol Tartrate (Metoprolol Tar 25 Mg Tab) 50 mg PO BID 6AM 6PM [facility] Morphine Sulfate (Morphine 4 Mg/Ml Syr) 2 mg IV Q4H PRN PRN Reason: Pain scale 5-7 (Moderate) Last Admin: 12/29/21 03:47 Dose: 2 mg Documented by: Ondansetron HCl (Ondansetron 4 Mg/2 Ml Vial) 4 mg IV Q6HP PRN PRN Reason: NAUSEA / VOMITING Last Admin: 12/29/21 03:47 Dose: 4 mg Documented by: Pantoprazole Sodium (Pantoprazole 40mg Tablet) 40 mg PO DAILYAC [facility]; Protocol Last Admin: 12/29/21 05:30 Dose: 40 mg Documented by: Sodium Bicarbonate (Sodium Bicarb 325 Mg Tab) 650 mg PO TIDWM [facility] Last Admin: 12/29/21 09:38 Dose: 650 mg Documented by: Sodium Chloride (Flush Normal Saline 10 Ml) 10 ml IV BID [facility] Last Admin: 12/29/21 09:00 Dose: Not Given Documented by: Spironolactone (Spironolactone 25 Mg Tablet) 25 mg PO DAILY [facility] Microbiology Results 12/21/21 16:54 Blood - Blood Aerobic Blood Culture - Final No growth in 5 days. 12/21/21 16:54 Blood - Blood Anaerobic Blood Culture - Final 12/21/21 14:50 Blood - Blood Aerobic Blood Culture - Final No growth in 5 days. 12/21/21 14:50 Blood - Blood Anaerobic Blood Culture - Final No growth in 5 days. Assessment/ Plan: Nephrology No dyspnea No chest pain Feeling better but swollen No acute events overnight. Vitals, medications, blood work and imaging reviewed in the chart. General: In no apparent distress, Cooperative HEENT: Atraumatic Neck: Supple Respiratory: Clear to auscultation bilaterally Cardiovascular: Trace edema, Regular rate/rhythm Gastrointestinal: Soft and benign, Non-distended Musculoskeletal: No clubbing, No contractures Integumentary: No rashes, No cyanosis Neurological: Normal speech Laboratory Data (last 24 hrs) 12/21/21 16:54: Sodium 134 L, Potassium 3.5, BUN 37 H, Creatinine 4.29 H, Glucose 106, Magnesium 1.9, Total Bilirubin 0.3, AST 126 H, ALT 39, Alkaline Phosphatase 79, Lipase 30 L 12/21/21 14:35: PT 13.7 H, INR 1.19 12/21/21 14:35: WBC 6.00, Hgb 12.9, Hct 39.4, Plt Count 212 Imagings Data: EXAM DESCRIPTION: CT - Abdomen Pelvis Wo Contrast - 12/21/2021 6:59 pm CLINICAL HISTORY: Abdominal pain. ABD PAIN COMPARISON: No comparisons TECHNIQUE: CT imaging of the abdomen and pelvis was performed without contrast. Solid organ, bowel and vascular assessment is limited due to lack of IV and oral contrast. All CT scans are performed using dose optimization technique as appropriate and may include automated exposure control or mA/KV adjustment according to patient size. FINDINGS: Mild opacities are present in both lung bases, greater on the right. The liver, spleen, pancreas, adrenal glands and kidneys are within normal limits for a limited non-contrast examination. No bowel obstruction, free air, free fluid or abscess. Mild thickening and inflammation of the cecum and ascending colon suspected. The appendix is not identified as a discrete structure, however, no secondary findings of appendicitis are identified. Lumbar orthopedic hardware is present. Left common iliac artery stent is in place. IMPRESSION: Mild right-sided colitis is suspected. Mild bibasilar lung opacities, greater on the right, could indicate infection. EXAM DESCRIPTION: RAD - Chest Single View - 12/21/2021 3:19 pm CLINICAL HISTORY: DYSPNEA Chest pain. COMPARISON: CHEST SINGLE VIEW dated 11/17/2013; CHEST PA AND LAT 2 VIEW dated 10/07/2009 FINDINGS: Portable technique limits examination quality. The lungs are grossly clear. The heart is normal in size. No displaced fractures.Cervical hardware plate is in place. IMPRESSION: No acute intrathoracic process suspected. Conclusions/Impression: BEVERLEY in the setting of hypotension/ hypovolemia consistent with ATN (FeNa 2.74%) CKD III with proteinuria -No NSAIDs -Discontinue IVF Hyponatremia, resolved Hypokalemia -Replete potassium prn Acidosis -Continue oral bicarb HTN with CKD -Change Metoprolol 50 BID -Start Losartan 50mg BID -Continue Amlodipine Moderate malnutrition -Advance diet as tolerated Anemia in chronic illness -Monitor CBC CKD MBD -Continue Calcitriol Sepsis Right sided colitis Acute cystitis -Continue Rocephin and Flagyl -Start Cranberry TID Case reviewed with Dr. Murphy
[2021-12-29] MEDS: CRANBERRY FRUIT EXTRACT 400 MG CAP PO SCH (14:00)
[2021-12-29] MEDS: HYDRALAZINE HCL 20 MG/ML VIAL IV PRN (16:06)
[2021-12-29] MEDS: METOPROLOL TAR 25 MG TAB PO SCH (17:15)
[2021-12-29] MEDS ORDERED: METOPROLOL TAR 25 MG TAB PO SCH (18:00)
[2021-12-29] MEDS: LOSARTAN POTASSIUM 50 MG TABLET PO SCH (20:03)
[2021-12-29] MEDS: ATORVASTATIN 20 MG TAB PO SCH (20:03)
[2021-12-30] MEDS: METRONIDAZOLE 500mg IVPB 500 MG/100 ML BAG IV SCH ×2 (00:09→09:00)
[2021-12-30] MEDS: LEVOTHYROXINE SOD 0.075 MG TAB PO SCH (05:08)
[2021-12-30] MEDS: METOPROLOL TAR 25 MG TAB PO SCH (05:08)
[2021-12-30] MEDS: PANTOPRAZOLE 40MG TABLET PO SCH (05:08)
[2021-12-30 05:10] VITALS: O2SAT 97
[2021-12-30 05:40] VITALS: TEMP 97.3
[2021-12-30 06:20] LABS: Hematocrit 25.6 % (36.0-45.0); MPV 7.4 fL (7.6-11.3); RBC Red Blood Cell Count 3.01 M/uL (3.86-4.86)
[2021-12-30 07:10] LABS: Albumin 2.3 g/dL (3.4-5.0); Folic Acid, (Folate) 15.4 ng/mL (3.1-17.5); Magnesium 1.7 mg/dL (1.8-2.4); Phosphorus 3.8 mg/dL (2.5-4.9); Potassium 3.3 mmol/L (3.5-5.1)
[2021-12-30] MEDS: SODIUM BICARB 325 MG TAB PO SCH (08:00)
[2021-12-30] MEDS ORDERED: MAGNESIUM SULFATE 1 gm IVPB 1 GM/100 ML BAG IV ONE (08:00)
[2021-12-30] MEDS: LACTOBACILLUS/ACIDOPHILUS TAB PO SCH (09:00)
[2021-12-30] MEDS: GABAPENTIN 300 MG CAP PO SCH (09:00)
[2021-12-30] MEDS: AMLODIPINE 5 MG TAB PO SCH (09:00)
[2021-12-30] MEDS: CALCITROL 0.25 MCG CAP PO SCH (09:00)
[2021-12-30] MEDS: CRANBERRY FRUIT EXTRACT 400 MG CAP PO SCH (09:00)
[2021-12-30] MEDS: LOSARTAN POTASSIUM 50 MG TABLET PO SCH (09:00)
[2021-12-30] MEDS ORDERED: SPIRONOLACTONE 25 MG TABLET PO SCH (09:00)
[2021-12-30] MEDS: APIXABAN 2.5 MG TABLET PO SCH (09:00)
[2021-12-30] MEDS: ASPIRIN 325 MG TAB PO SCH (09:00)
[2021-12-30] MEDS: CEFTRIAXONE 1,000 MG in NA CHLORIDE 0.9% 50 ML IVPB SCH (09:00)
[2021-12-30 10:44] VITALS: BP 158/70
--- NOTE | 2021-12-30 18:13 | P.DS ---
Admission Date: 12/21/21 Discharge Date: 12/30/21 Primary Care Provider: Dr. Tao Disposition: ROUTINE DISCHARGE Discharge Condition: GOOD Reason for Admission: Colitis, Hypotension, BEVERLEY Consultations: Nephrology - Dr. Plascencia Procedures: Problem List Hypovolemic shock Acute renal failure UTI Colitis History of C. difficile colitis Non-anion gap metabolic acidosis Elevated troponin Brief History of Present Illness: 56 yo female with recurrent UTIs and history of C. difficile colitis who presented to the ED with a 1 week history of fever, diarrhea, and weakness. Patient reports she gets a UTI every other month and has been on antibiotic for treatment. Patient's brought her in today because she could barely walk and was having explosive diarrhea. In the ED patient's creatinine was found to be 4.29 (baseline < 1), WBC 6, troponin high-sensitivity 60, BNP 1030, pro-Jacob 2.7. Head CT negative and abdomen/pelvis CT showed right-sided colitis. Stool studies to check for C. difficile have been ordered along with blood cultures. Patient's blood pressure has been soft most likely secondary to dehydration. Hospital Course: Patient was found to have colitis and acute renal failure. She was treated with IV antibiotics and bowel rest. c.diff was negative. Nephrology was consulted, she received IV fluids and bicarb with improvement. On day of discharge, her renal function continued to improve with discontinuation of IV fluids >24hrs. She also reported UTI symptoms and urine grew e.coli, resistant to fluoroquinolones. On discharge she is to complete 7 more days of cefdinir and flagyl. Continue protonix. Recommend Probiotic while on antibiotics. resume home medications as previously prescribed. Amlodipine was added to help with her blood pressure. Patient instructed to check blood pressure daily and if becomes low / back to her usual, she can discontinue amlodipine. She was also found to be anemic, with iron deficiency. She reported a few days of dark / black stools prior to admission. She did not have any dark stools during hospitalization. Her hemoglobing slightly downtrended secondary to blood draws, hemodilution, and acute renal failure, but was overall stable in the last 3 days. Follow up: PCP in 3-5 days Nephrology - Dr. Plascencia in 1-2 weeks GI - discuss possible need for EGD/colonoscopy Vital Signs/Physical Exam: Temp Pulse Resp BP Pulse Ox 97.3 F 77 18 158/70 H 97 12/30/21 08:00 12/30/21 08:00 12/30/21 08:00 12/30/21 08:00 12/30/21 08:00 Physical exam GEN: Alert, oriented, NAD HEENT: Normal conjunctiva, sclera anicteric CV: Regular rate and rhythm, mild b/l edema Pulm: Nonlabored respirations on room air ABD: Soft, nontender Neuro: Normal speech, normal affect Laboratory Data at Discharge: WBC 7.30 K/uL (4.3-10.9) 12/30/21 05:47 Hgb 8.6 g/dL (12.0-15.0) L 12/30/21 05:47 Hct 25.6 % (36.0-45.0) L 12/30/21 05:47 Plt Count 435 K/uL (152-406) H 12/30/21 05:47 PT 13.7 SECONDS (9.5-12.5) H 12/21/21 14:35 INR 1.19 12/21/21 14:35 Sodium 142 mmol/L (136-145) 12/30/21 05:47 Potassium 3.3 mmol/L (3.5-5.1) L 12/30/21 05:47 BUN 12 mg/dL (7-18) 12/30/21 05:47 Creatinine 1.88 mg/dL (0.55-1.3) H 12/30/21 05:47 Glucose 96 mg/dL (74-106) 12/30/21 05:47 Uric Acid 5.3 mg/dL (2.6-6.0) 12/27/21 05:59 Phosphorus 3.8 mg/dL (2.5-4.9) 12/30/21 05:47 Magnesium 1.7 mg/dL (1.8-2.4) L 12/30/21 05:47 Total Bilirubin 0.2 mg/dL (0.2-1.0) 12/26/21 05:38 AST 21 U/L (15-37) 12/26/21 05:38 ALT 25 U/L (12-78) 12/26/21 05:38 Alkaline Phosphatase 83 U/L (45-117) 12/26/21 05:38 Triglycerides 146 mg/dL (<150) 12/22/21 08:11 Cholesterol 136 mg/dL (<200) 12/22/21 08:11 HDL Cholesterol 20 mg/dL (40-60) L 12/22/21 08:11 Cholesterol/HDL Ratio 6.80 12/22/21 08:11 Lipase 30 U/L (73-393) L 12/21/21 16:54 Home Medications: Metoprolol Tartrate [Lopressor*] 50 mg PO BID 11/18/13 Montelukast [Singulair*] 20 mg PO DAILY 11/18/13 Losartan Potassium [Cozaar*] 50 mg PO BID 12/28/21 Spironolactone [Aldactone*] 25 mg PO DAILY 12/28/21 Amlodipine [Norvasc*] 5 mg PO DAILY 30 Days #30 tab 12/30/21 Cefdinir [Cefdinir*] 300 mg PO BID 7 Days #14 cap 12/30/21 Pantoprazole [Protonix Tab*] 40 mg PO DAILYAC 30 Days #30 tab 12/30/21 metroNIDAZOLE [Flagyl] 500 mg PO Q8H 7 Days #21 tablet 12/30/21 New Medications: Cefdinir [Cefdinir*] 300 mg PO BID 7 Days #14 cap metroNIDAZOLE [Flagyl] 500 mg PO Q8H 7 Days #21 tablet Amlodipine [Norvasc*] 5 mg PO DAILY 30 Days #30 tab Pantoprazole [Protonix Tab*] 40 mg PO DAILYAC 30 Days #30 tab Physician Discharge Instructions: Patient was found to have colitis and acute renal failure. She was treated with IV antibiotics and bowel rest. c.diff was negative. Nephrology was consulted, she received IV fluids and bicarb with improvement. On day of discharge, her renal function continued to improve with discontinuation of IV fluids >24hrs. She also reported UTI symptoms and urine grew e.coli, resistant to flu oroquinolones. On discharge she is to complete 7 more days of cefdinir and flagyl. Continue protonix. Recommend Probiotic while on antibiotics. resume home medications as previously prescribed. Amlodipine was added to help with her blood pressure. Patient instructed to check blood pressure daily and if becomes low / back to her usual, she can discontinue amlodipine. She was also found to be anemic, with iron deficiency. She reported a few days of dark / black stools prior to admission. She did not have any dark stools during hospitalization. Her hemoglobing slightly downtrended secondary to blood draws, hemodilution, and acute renal failure, but was overall stable in the last 3 days. Follow up: PCP in 3-5 days Nephrology - Dr. Plascencia in 1-2 weeks GI - discuss possible need for EGD/colonoscopy Diet: Regular Activity: Ad darian Followup: NONE,NONE [Primary Care Provider] - Time spent managing pt's care (in minutes): 45
== END 2021-12-30 10:00 | disposition home or self-care (01) | DRG 871 ==
LOC: ER 13:29 → ERHOLD 20:01 → 3RD-ICU 12-22 00:13 → 2ND 12-23 17:52
PROVIDERS: ADMIT Internal Medicine; ATTEND Hospitalist
DX: A41.9 Sepsis, unspecified organism (principal); N17.0 Acute kidney failure with tubular necrosis; R57.1 Hypovolemic shock; E87.1 Hypo-osmolality and hyponatremia; E87.2 Acidosis; E44.0 Moderate protein-calorie malnutrition; D61.818 Other pancytopenia; Z16.29 Resistance to other single specified antibiotic; N30.00 Acute cystitis without hematuria; K52.9 Noninfective gastroenteritis and colitis, unspecified; N18.30 Chronic kidney disease, stage 3 unspecified; E83.42 Hypomagnesemia; E86.0 Dehydration; E87.6 Hypokalemia; E83.51 Hypocalcemia; E86.1 Hypovolemia; D50.9 Iron deficiency anemia, unspecified; M89.9 Disorder of bone, unspecified; I49.9 Cardiac arrhythmia, unspecified; R77.8 Other specified abnormalities of plasma proteins; Z68.33 Body mass index [BMI] 33.0-33.9, adult; Z79.01 Long term (current) use of anticoagulants; Z98.51 Tubal ligation status; Z79.899 Other long term (current) drug therapy; Z20.822 Contact with and (suspected) exposure to COVID-19
CPT/HCPCS: 0240U; 36415; 70450; 71045; 74176; 80048; 80053; 80061; 80069; 80076; 81001; 82550; 82570; 82607; 82746; 83540; 83605; 83690; 83735; 83880; 84100; 84145; 84156; 84300; 84439; 84443; 84466; 84484; 84550; 85025; 85027; 85610; 86704; 86706; 87040; 87077; 87086; 87088; 87186; 87324; 87340; 87449; 89055; 96374; 99285; J0360; J2270; J2405; J3475; J7030

== ENCOUNTER 2023-04-22 16:01 | Emergency (ER) | payer OTHER ==
--- NOTE | 2023-04-22 19:14 | RAD REPORT ---
EXAM DESCRIPTION: RAD - Tib Fib Right - 04/22/2023 6:39 pm CLINICAL HISTORY: Pain;Smash injury COMPARISON: No comparisons FINDINGS: No acute fracture or dislocation is seen. Large calcaneal spurs.
--- NOTE | 2023-04-22 19:47 | ER ---
Nurse's Notes [facility] Name: Saranya Ceja Age: 57 yrs Sex: Female : 1965 Arrival Date: 04/22/2023 Time: 16:01 Bed 5 Private MD: Saran Tao S Diagnosis: Pain in left lower leg Presentation: 04/22 16:26 Chief complaint: Patient states: 2 different falls 04/05 or 04/06. L knee went through ll1 porch. L knee pain since. R leg pain from 2nd fall. Coronavirus screen: Vaccine status: Patient reports receiving the 2nd dose of the covid vaccine. Client denies travel out of the [place] in the last 14 days. At this time, the client does not indicate any symptoms associated with coronavirus-19. Ebola Screen: Patient denies travel to an Ebola-affected area in the 21 days before illness onset. Initial Sepsis Screen: Does the patient meet any 2 criteria? No. Patient's initial sepsis screen is negative. Does the patient have a suspected source of infection? No. Patient's initial sepsis screen is negative. Risk Assessment: Do you want to hurt yourself or someone else? Patient reports no desire to harm self or others. Onset of symptoms was April 04, 2023. 16:26 Method Of Arrival: Ambulatory ll1 16:26 Acuity: SHANELLE 4 ll1 Historical: - Allergies: 16:23 Plavix; ll1 - PMHx: 16:23 stent, blood clots; Hypercholesterolemia; Hypertensive disorder; Asthma; GERD; ll1 Hypothyroidism; radiculopathy; ARF; Sleep apnea; - PSHx: 16:23 tubal ligation; ll1 - Immunization history:: Client reports receiving the 2nd dose of the Covid vaccine. - Social history:: Smoking status: Patient reports the use of cigarette tobacco products, smokes one-half pack cigarettes per day. Screenin:51 [facility] ED Fall Risk Assessment (Adult) History of falling in the last 3 months, nj1 including since admission Yes- single mechanical fall (1 pt) Confusion or Disorientation No (0 pts) Intoxicated or Sedated No (0 pts) Impaired Gait No (0 pts) Mobility Assist Device Used No (0 pt) Altered Elimination No (0 pt) Score/Fall Risk Level 0 - 2 = Low Risk Oriented to surroundings, Maintained a safe environment, Hourly rounding (assess needs \T\ fall precautionary measures) done. Abuse screen: Denies threats or abuse. Denies injuries from another. Nutritional screening: No deficits noted. Tuberculosis screening: No symptoms or risk factors identified. Assessment: 17:50 General: Appears in no apparent distress. comfortable, Behavior is calm, cooperative, nj1 appropriate for age. Pain: Complains of pain in right knee. Neuro: Level of Consciousness is awake, alert, obeys commands, Oriented to person, place, time, situation. Cardiovascular: Patient's skin is warm and dry. Respiratory: Airway is patent Respiratory effort is even, unlabored. Musculoskeletal: Reports pain in right knee. 19:00 Reassessment: Patient appears in no apparent distress at this time. No changes from aa5 previously documented assessment. Patient and/or family updated on plan of care and expected duration. Pain level reassessed. Patient is alert, oriented x 3, equal unlabored respirations, skin warm/dry/pink. Vital Signs: 16:26 BP 145 / 75; Pulse 80; Resp 16; Temp 97.3; Pulse Ox 100% ; Weight 97.52 kg; Height 5 ll1 ft. 5 in. ; Pain 8/10; 19:34 BP 148 / 73; Pulse 74; Resp 16; Pulse Ox 99% on R/A; jb4 16:26 Body Mass Index 35.78 (97.52 kg, 165.1 cm) ll1 16:26 Pain Scale: Adult ll1 ED Course: 16:05 Patient arrived in ED. am2 16:05 Saran Tao MD is Private Physician. am2 16:07 Susie Parker F[facility]-C [facility]. snw 16:07 Luther Corona MD is Attending Physician. snw 16:28 Triage completed. ll1 16:28 Arm band placed on. ll1 17:04 Mona Mccallum, RN is Primary Nurse. cm10 17:13 Vicki Shah, KIMO is Primary Nurse. nj1 17:51 Patient has correct armband on for positive identification. Bed in low position. Call nj1 light in reach. 18:31 US Extremity Venous Unilateral Ltd In Process Unspecified. EDMS 18:41 Tib Fib Right XRAY In Process Unspecified. EDMS 19:46 Saran Tao MD is Referral Physician. snw 19:51 No provider procedures requiring assistance completed. Patient did not have IV access kl during this emergency room visit. Administered Medications: 19:50 Not Given (Patient Refused): traMADol PO 25 mg PO once kl Medication: 19:51 VIS not applicable for this client. kl Outcome: 19:47 Discharge ordered by . snw 19:51 Discharged to home ambulatory. kl 19:51 Condition: stable 19:51 Discharge instructions given to patient, Instructed on discharge instructions, follow up and referral plans. Demonstrated understanding of instructions, follow-up care, medications, Prescriptions given X 1. 19:51 Patient left the ED. Signatures: Dispatcher [employer] EDMS Cara Carrillo RN RN Susie Simental, MATRIX SUPERVISOR-C MATRIX SUPERVISOR-Csnw Leann Mo RN RN aa5 Quinton Aburto RN RN jb4 Jeri Hyman Lynsay, RN RN ll1 Vicki Shah RN RN nj1 Mona Mccallum RN RN cm10 Corrections: (The following items were deleted from the chart) 16:26 16:23 Allergies: No Known Allergies; 1 ll1
--- NOTE | 2023-04-22 19:47 | EDPHYS ---
Physician Documentation [facility] Name: Saranya Ceja Age: 57 yrs Sex: Female : 1965 Arrival Date: 04/22/2023 Time: 16:01 Bed 5 Private MD: Saran Tao S ED Physician Luther Corona HPI: 04/22 18:37 This 57 yrs old Female presents to ER via Ambulatory with complaints of Leg Pain, Fall snw Injury - 04/03. 18:37 The patient presents with pain, that is acute, swelling, tenderness. The complaints snw affect the medial aspect of right calf and right russell. Context: The problem was sustained at home, resulted from a chronic condition, PVD, the patient falling, down stairs, uses a brace. Onset: The symptoms/episode began/occurred 1 week(s) ago, and became persistent. Associated signs and symptoms: Pertinent positives: calf tenderness, swelling. Severity of symptoms: At their worst the symptoms were mild, moderate. The patient has experienced similar episodes in the past. It is unknown whether or not the patient has recently seen a physician. Historical: - Allergies: 16:23 Plavix; ll1 - PMHx: 16:23 stent, blood clots; Hypercholesterolemia; Hypertensive disorder; Asthma; GERD; ll1 Hypothyroidism; radiculopathy; ARF; Sleep apnea; - PSHx: 16:23 tubal ligation; ll1 - Immunization history:: Client reports receiving the 2nd dose of the Covid vaccine. - Social history:: Smoking status: Patient reports the use of cigarette tobacco products, smokes one-half pack cigarettes per day. ROS: 18:38 Constitutional: Negative for fever, chills, and weight loss, Eyes: Negative for injury, snw pain, redness, and discharge, ENT: Negative for injury, pain, and discharge, Neck: Negative for injury, pain, and swelling, Cardiovascular: Negative for chest pain, palpitations, and edema, Respiratory: Negative for shortness of breath, cough, wheezing, and pleuritic chest pain, Abdomen/GI: Negative for abdominal pain, nausea, vomiting, diarrhea, and constipation, Back: Negative for injury and pain, : Negative for injury, bleeding, discharge, and swelling, Skin: Negative for injury, rash, and discoloration, Neuro: Negative for headache, weakness, numbness, tingling, and seizure, Psych: Negative for depression, anxiety, suicide ideation, homicidal ideation, and hallucinations. 18:38 MS/extremity: Positive for pain, swelling, tenderness, of the medial aspect of left calf and left russell. Exam: 19:20 Constitutional: This is a well developed, well nourished patient who is awake, alert, snw and in no acute distress. Head/Face: Normocephalic, atraumatic. Eyes: Pupils equal round and reactive to light, extra-ocular motions intact. Lids and lashes normal. Conjunctiva and sclera are non-icteric and not injected. Cornea within normal limits. Periorbital areas with no swelling, redness, or edema. ENT: Nares patent. No nasal discharge, no septal abnormalities noted. Tympanic membranes are normal and external auditory canals are clear. Oropharynx with no redness, swelling, or masses, exudates, or evidence of obstruction, uvula midline. Mucous membranes moist. Neck: Trachea midline, no thyromegaly or masses palpated, and no cervical lymphadenopathy. Supple, full range of motion without nuchal rigidity, or vertebral point tenderness. No Meningismus. Chest/axilla: Normal chest wall appearance and motion. Nontender with no deformity. No lesions are appreciated. Cardiovascular: Regular rate and rhythm with a normal S1 and S2. No gallops, murmurs, or rubs. Normal PMI, no JVD. No pulse deficits. Respiratory: Lungs have equal breath sounds bilaterally, clear to auscultation and percussion. No rales, rhonchi or wheezes noted. No increased work of breathing, no retractions or nasal flaring. Abdomen/GI: Soft, non-tender, with normal bowel sounds. No distension or tympany. No guarding or rebound. No evidence of tenderness throughout. Back: No spinal tenderness. No costovertebral tenderness. Full range of motion. Skin: Warm, dry with normal turgor. Normal color with no rashes, no lesions, and no evidence of cellulitis. Neuro: Awake and alert, GCS 15, oriented to person, place, time, and situation. Cranial nerves II-XII grossly intact. Motor strength 5/5 in all extremities. Sensory grossly intact. Cerebellar exam normal. Normal gait. Psych: Awake, alert, with orientation to person, place and time. Behavior, mood, and affect are within normal limits. 19:20 Musculoskeletal/extremity: Extremities: grossly normal except: noted in the left russell and medial aspect of left calf: contusion, tenderness, Circulation is intact in all extremities. the medial aspect of left calf Tingling of extremity. DVT exam negative by exam but pt has hx for got US and no thrombus noted. Vital Signs: 16:26 BP 145 / 75; Pulse 80; Resp 16; Temp 97.3; Pulse Ox 100% ; Weight 97.52 kg; Height 5 ll1 ft. 5 in. ; Pain 8/10; 19:34 BP 148 / 73; Pulse 74; Resp 16; Pulse Ox 99% on R/A; jb4 16:26 Body Mass Index 35.78 (97.52 kg, 165.1 cm) ll1 16:26 Pain Scale: Adult ll1 MDM: 16:52 Patient medically screened. ninoska 18:35 Differential diagnosis: DVT, fracture, contusion, neuropathy. Data reviewed: vital snw signs, nurses notes, radiologic studies, US negative for DVT. Counseling: I had a detailed discussion with the patient and/or guardian regarding: the historical points, exam findings, and any diagnostic results supporting the discharge/admit diagnosis, the presence of at least one elevated blood pressure reading (>120/80) during this emergency department visit, radiology results, the need for outpatient follow up, to return to the emergency department if symptoms worsen or persist or if there are any questions or concerns that arise at home. 18:36 Counseling: I had a detailed discussion with the patient and/or guardian regarding: snw smoking cessation. Special discussion: I have referred the patient to see his PCP for further evaluation of high blood pressure. Based on the history and exam findings, there is no indication for further emergent testing or inpatient evaluation. I discussed with the patient/guardian the need to see the primary care provider for further evaluation of the symptoms. 04/22 17:50 Order name: US Extremity Venous Unilateral Ltd snw 04/22 17:50 Order name: Tib Fib Right XRAY; Complete Time: 19:16 snw Administered Medications: 19:50 Not Given (Patient Refused): traMADol PO 25 mg PO once kl Disposition Summary: 04/22/23 19:47 Discharge Ordered Location: Home snw Condition: Stable snw Diagnosis - Pain in left lower leg snw Followup: snw - With: Emergency Department - When: As needed - Reason: Worsening of condition Followup: snw - With: Saran Tao MD - When: 2 - 3 days - Reason: Recheck today's complaints, Continuance of care, Re-evaluation by your physician Discharge Instructions: - Discharge Summary Sheet snw - Musculoskeletal Pain snw - Pain Without a Known Cause snw - Heat Therapy snw Forms: - Medication Reconciliation Form snw - Thank You Letter snw - Antibiotic Education snw - Prescription Opioid Use snw Prescriptions: - Tramadol 50 mg Oral Tablet - take 1 tablet by ORAL route every 8 hours as needed; 12 tablet; Refills: 0, snw Product Selection Permitted Signatures: Dispatcher [employer] EDMS Luther Corona MD MD cha Waters, Shelly, BUSINESS SYSTEMS MANAGER-C BUSINESS SYSTEMS MANAGER-Csnw Odin Carrillo RN RN ll1 Cara Carrillo RN Corrections: (The following items were deleted from the chart) 16:26 16:23 Allergies: No Known Allergies; 1 1
[2023-04-22 19:56] VITALS: TEMP 97.3
[2023-04-22 19:57] VITALS: BP 148/73; O2SAT 99
[2023-04-22] MEDS ORDERED: TRAMADOL HCL 50 MG TAB ONE (19:58)
--- NOTE | 2023-04-22 20:19 | RAD REPORT ---
EXAM DESCRIPTION: US - Extremity Venous Uni Ltd - 04/22/2023 6:30 pm CLINICAL HISTORY: Pain;Smash injury Leg swelling and edema. COMPARISON: Chest Single View dated 04/18/2023; Chest Single View dated 03/25/2023; Chest Single View dated 02/10/2023; Chest Single View dated 01/21/2023No comparisons FINDINGS: Right lower extremity venous system was interrogated with Doppler technique. Normal flow, compressibility and augmentation was noted. There is no DVT present. IMPRESSION: No evidence of right lower extremity deep venous thrombosis.
== END 2023-04-22 19:51 | disposition home or self-care (01) ==
LOC: ER 16:01
DX: M79.661 Pain in right lower leg (principal); I10 Essential (primary) hypertension; F17.210 Nicotine dependence, cigarettes, uncomplicated; Z88.8 Allergy status to other drugs, medicaments and biological substances
CPT/HCPCS: 93971; 99283

== ENCOUNTER 2024-05-29 07:27 | Day surgery (SDC) | payer OTHER ==
[2024-05-27 14:15] LABS: Absolute Basophils 0.1 K/uL (0-0.5); Absolute Eosinophils 0.1 K/uL (0-0.5); Absolute Lymphocytes (CBC) 2.3 K/uL (0.7-4.9); Absolute Monocytes 0.4 K/uL (0.1-1.3); Absolute Neutrophil 3.1 K/uL (1.8-8.0); Eosinophils % 2.2 % (0-4.4); Hematocrit 40.2 % (36.0-45.0); Hemoglobin 13.1 g/dL (12.0-15.0); Lymphocytes % 38.9 % (15.3-44.8); MCH 29.3 pg (27.0-35.0); MCHC 32.6 g/dL (32.0-36.0); MCV 89.8 fL (80-100); MPV 7.5 fL (7.6-11.3); Monocytes % 6.6 % (3.3-12.3); Neutrophils % 51.3 % (41.7-73.7); Nucleated Red Blood Cells % 0.2 % (0-0); Platelets 366 thou/uL (152-406); RBC Red Blood Cell Count 4.48 M/uL (3.86-4.86); Red Cell Distribution Width 16.2 % (12.1-15.2)
[2024-05-27 14:26] LABS: Anion Gap 6.6 mEq/L (5.0-15.0); Potassium 4.6 mEq/L (3.5-5.1)
--- NOTE | 2024-05-28 11:45 | EKG ---
Test Date: 2024-05-27 Test Time: 13:28:19 Celery Packer: BETTE MEASUREMENT RESULTS: Intervals: Rate: 82 MN: 152 QRSD: 78 QT: 354 QTc: 413 Jenners: P: 67 MN: 152 QRS: 46 T: 67 INTERPRETIVE STATEMENTS: Normal sinus rhythm Normal ECG Compared to ECG 12/21/2021 14:48:56 Sinus tachycardia no longer present Atrial abnormality no longer present ST (T wave) deviation no longer present Electronically Signed On 05-28-24 11:43:27 CDT by [place]
[2024-05-29] MEDS ORDERED: Ringers Lactate 1,000 ML IV ONE (07:50)
[2024-05-29] MEDS ORDERED: NA CHLORIDE 0.9% 1,000 ML ONE (09:27)
[2024-05-29] MEDS ORDERED: BACITRACIN OINTMENT 14 GM TUBE TOP ONE (09:28)
[2024-05-29] MEDS ORDERED: dexAMETHasone 10 MG/ML VIAL ONE (09:30)
[2024-05-29] MEDS ORDERED: LIDOCAINE 1% MPF 5 ML VIAL ONE (09:30)
[2024-05-29] MEDS ORDERED: ONDANSETRON 4 MG/2 ML VIAL ONE (09:30)
[2024-05-29] MEDS ORDERED: FENTANYL CITR 100 MCG/2 ML ONE (09:31)
[2024-05-29] MEDS ORDERED: propofoL 200 MG/20 ML VIAL IV ONE (09:31)
[2024-05-29] MEDS ORDERED: MIDAZOLAM HCL 2 MG/2 ML INJ ONE (09:31)
[2024-05-29] MEDS ORDERED: ROCURONIUM 50 MG/5 ML VIAL IV ONE (09:32)
[2024-05-29] MEDS ORDERED: SUCCINYLCHOLINE 20 MG/ML (10 ML) IV ONE (09:44)
[2024-05-29] MEDS: CEFAZOLIN SODIUM 1 GM/VIAL ONE (10:06)
[2024-05-29] MEDS: LIDOCAINE HCL/EPINEPHRINE 20 ML MDV ONE (10:25)
[2024-05-29] MEDS: OXYMETAZOLINE HCL 0.05% 15ML NAS ONE (10:45)
[2024-05-29] MEDS ORDERED: EPHEDRINE SULF 50 MG/ML VIAL ONE (11:01)
[2024-05-29] MEDS ORDERED: SUGAMMADEX SODIUM 200 MG/2 ML VIAL IV ONE (11:24)
[2024-05-29 13:04] VITALS: BP 149/82; TEMP 97.3
[2024-05-29] MEDS: CODEINE 30MG/APAP 300MG TAB ONE (13:05)
[2024-05-29 13:53] VITALS: O2SAT 94
--- NOTE | 2024-06-02 20:08 | OP ---
Date of Procedure: 05/29/2024 Surgeon: PEDRITO HOWE Preoperative Diagnoses: 1.Complete right vocal cord paralysis. 2.Bilateral vocal cord atrophy. 3.Bilateral chronic maxillary sinusitis. 4.Bilateral nasal valve collapse. Postoperative Diagnoses: 1.Complete right vocal cord paralysis. 2.Bilateral vocal cord atrophy. 3.Bilateral chronic maxillary sinusitis. 4.Bilateral nasal valve collapse. Procedures: 1.Bilateral vocal cord medialization with calcium skrprmierqehkv-munk-nflxkr Prolaryn gel. 2.Bilateral maxillary sinus lavage. 3.Bilateral Latera implants. Anesthesia: General endotracheal anesthesia was administered. Estimated Blood Loss: Less than 2 mL. Specimens: Mucopurulent secretions obtained from left maxillary sinus cavity submitted to microbiolo gy for Gram stain, culture, sensitivity, and fungal cultures. Findings: Bilateral mucopurulent secretions involving the maxillary sinuses, bilateral vocal cord at rophy, right worse than left, with complete right vocal cord paralysis, bilateral nasal valve stenosi s. Complications: None. Disposition: Stable. The patient tolerated the procedure well. Indication For Procedure: The patient is a pleasant 59-year-old female, who presented to my outpatie nt clinic with chronic throat clearing and coughing and regurgitation of food and liquid and chronic dysphonia secondary to vocal cord paralysis, most likely due to several anterior approaches to cervic al disk fusion surgeries that she has had in the past. The patient also has had several functional e ndoscopic sinus surgeries in the past, but there has been a marked amount of mucus pooling in bilater al maxillary sinuses that she is unable to irrigate and wash out with saline rinses. She also has in ability to breathe through both nostrils as during inhalation she has bilateral nasal valve collapse, which was improved with modified caudal maneuver. These were indications to bring the patient to op erative suite for the above-mentioned procedure. She understood. All questions were answered. Risk s versus benefits and complications were explained in detail and a consent form was signed, which was placed in the chart. Description Of Procedure: The patient was transferred from the preoperative holding area to the oper ative suite by Department of Anesthesia, placed on the operating table in supine, sedated, intubated in normal fashion. Table was rotated 90 degrees. A rigid laryngoscope was introduced into the right oral commissure and directed along the endotracheal tube and suspended from the [place] stand. I insti lled 0.8 mL of long-acting Prolaryn gel into the right vocal cord just lateral to the vocal process a nd then I instilled the additional 0.2 mL of the substance just lateral to the left vocal process the reby medializing both vocal folds. The laryngoscope was de-suspended from the [place] stand and removed from the patient's oral cavity. Next, I inserted Afrin-soaked nasal pledgets into bilateral nasal c avities and the patient was then prepped and draped. I removed the pledgets and inserted a 0-degree rigid nasal endoscope into bilateral nasal cavities and irrigated the left maxillary sinus with appro ximately 120 mL of sterile saline and collecting specimen into a trap and sending it to microbiology for evaluation. Once irrigation was complete, I then inserted [place] tip suction to remove any fluid contents from the left maxillary sinus. I then lavaged the right maxillary sinus by inserting the [employer] Cyclone lavage system into the right maxillary sinus and irrigated with approximately 120 mL of sterile saline. I then suctioned any residual fluid contents utilizing an [place] tip suction. I als o used the [employer] cyclone for the left maxillary sinus for lavage. Next, I marked the area of the nasal alar crease bilaterally up to the frontal process of the maxilla ry bone where the implant would be fixed. A 24 mm implant was used on both sides. My attention was placed to the right nasal ala, which was retracted with double prong hooks and then I inserted the im plant, which was in the device to the edge of the frontal process of the right maxillary bone and ins erted it up to the level just medial and inferior to the medial canthus. I then delivered the implan t into the left nasal sidewall and then removed the delivery device. I then repeated this process on the left side in which the left nasal ala was retracted and I inserted the cannula through the skin down to the level of the frontal process of the maxillary bone and then once I felt that it was adequ ately positioned I then delivered the implant into the soft tissue and removed the delivery device. Cautery and suture were not needed as the patient did not have any bleeding. I also infiltrated a sm all amount of lidocaine with epinephrine preoperatively to help with bleeding. The implants were pal pated and found to be just subcutaneous and adhered to the frontal process of the maxillary bone on b oth sides and the implant delivery was successful. A mustache dressing was placed. She tolerated th e procedure well. We discharged her home on antibiotic and analgesic medication, will follow up in 1 -2 weeks or sooner if needed. PRIMO/VEGA Voice ID: [id number] Report ID: [id number]
== END 2024-05-29 13:40 | disposition home or self-care (01) ==
LOC: OR 07:27
PROVIDERS: ATTEND Otolaryngology Facial Plastic Surgery
PROC: 3E1978Z Irrigation of Nose using Irrigating Substance, Via Natural or Artificial Opening (ICD-10-PCS; 2024-05-29)
PROC: 3E0F8GC Introduction of Other Therapeutic Substance into Respiratory Tract, Via Natural or Artificial Opening Endoscopic (ICD-10-PCS; principal; 2024-05-29 08:30)
PROC: 09U Ear, Nose, Sinus, Supplement (ICD-10-PCS; 2024-05-29 08:30)
DX: J38.01 Paralysis of vocal cords and larynx, unilateral (principal); J32.0 Chronic maxillary sinusitis; J34.89 Other specified disorders of nose and nasal sinuses; E66.9 Obesity, unspecified; F17.200 Nicotine dependence, unspecified, uncomplicated; Z68.34 Body mass index [BMI] 34.0-34.9, adult
CPT/HCPCS: 30468; 31571; 31000; 93005; 85025; 80048; 36415; 87205; 87102; J2704; J2001; J2250; J3010; J1100; J2405; J7120; J7040; J0690